=== PATIENT | female | born 1965 | race Caucasian/White ===

== ENCOUNTER 2019-09-26 01:55 | Observation (INO) | payer OTHER, MEDICAID, SELFPAY ==
[2019-09-26] VITALS (29 sets, daily range): BP systolic 97–143; BP diastolic 48–80; PULSE 66–98; RESP 11–20; TEMP 36.1–38.4; O2SAT 86–100; BMI 33.9
--- NOTE | 2019-09-26 02:00 | DI.RAD.S_ITS ---
PROCEDURE: XR ABDOMEN MIN 2V INDICATIONS: severe abdominal pain, decreased BM TECHNIQUE: 2 views of the abdomen were acquired. COMPARISON: None. FINDINGS: Surgical changes and devices: None. Bowel: No pneumoperitoneum. Multiple mildly dilated loops of small bowel noted. Scattered air-fluid levels are noted several which have differential height. Soft tissues: No masses; visualized solid organ contours appear normal in size. No suspicious abdominal calcifications. Bones: No suspicious bony abnormalities. IMPRESSION: Findings concerning for small-bowel obstruction. Dictated by: Nevin Ugalde MD, PhD on 09/26/2019 at 9:09 Approved by: Nevin Ugalde MD, PhD on 09/26/2019 at 9:09
--- NOTE | 2019-09-26 02:06 | ED.ABDPAIN ---
HPI - Abdominal Pain General Chief Complaint: Abdominal Pain Stated Complaint: poss SBO /constipation Time Seen by Provider: 09/26/19 01:55 Source: patient and EMS Mode of arrival: EMS Limitations: no limitations History of Present Illness HPI narrative: 54-year-old female nonsmoker with history of depression presents by air medical transport for evaluation of severe generalized abdominal pain, gradually worsening since Tuesday. She has had no bowel movements and limited passage of gas since then. She has had nausea but no vomiting. She has had low-grade fever in the absence of runny nose, sore throat or cough. She denies dysuria, frequency or urgency. She was given fentanyl 50 micro g by on scene paramedics as well as some Zofran. She denies any history of the same. Her pain is significantly worse with any motion and improves with rest. MD complaint: abdominal pain Onset (ago): day(s) Pain Consistency: constant Location: diffuse Severity: severe Quality: cramping and aching Radiation: none Relieving factors: rest Exacerbating factors: movement Associated symptoms: nausea and fever Related Data Home Medications Medication Instructions Recorded Confirmed lisinopril 30 mg PO QDAY #0 12/25/15 ibuprofen 800 mg PO QDAY #0 01/29/16 Previous Rx's Medication Instructions Recorded clonidine HCl 0.1 mg PO HS #30 tab 04/05/16 naltrexone 50 mg PO QDAY #30 tab 04/05/16 bupropion HCl [Wellbutrin XL] 150 mg PO QDAY #30 tab 01/05/17 bupropion HCl [Wellbutrin XL] 300 mg PO QDAY #30 tab 01/05/17 Allergies Allergy/AdvReac Type Severity Reaction Status Date / Time No Known Drug Allergies Allergy Verified 09/26/19 02:48 Review of Systems Constitutional Constitutional: Reports body ache(s), Reports chills, Denies fatigue, Reports fever(s), Denies frequent falls, Denies lethargy and Denies weakness Eyes Eyes: Denies change in vision, Denies eye discharge, Denies irritation and Denies loss of vision ENT Ears, Nose, Mouth, and Throat: Denies change in voice, Denies dizziness, Denies neck pain, Denies sore throat and Denies throat swelling Cardiovascular Cardiovascular: Denies chest pain, Denies irregular heart rhythm, Denies lightheadedness, Denies palpitations, Denies dyspnea, Denies dyspnea on exertion and Denies orthopnea Respiratory Respiratory: Denies cough, Denies dyspnea, Denies dyspnea on exertion and Denies wheezing Gastrointestinal Gastrointestinal: Reports abdominal pain, Denies change in bowel habits, Denies diarrhea, Reports nausea and Denies vomiting Musculoskeletal Musculoskeletal: Denies neck pain and Denies numbness Integumentary/Breasts Skin/Breast: Denies pruritus, Denies erythema, Denies rash and Denies wounds Neurologic Neurologic: Denies behavioral changes, Denies confusion, Denies dizziness, Denies frequent falls, Denies loss of vision, Denies numbness and Denies weakness Psychiatric Psychiatric: Denies anxiety, Denies behavioral changes, Denies confusion, Denies depression, Denies homicidal ideation and Denies suicidal ideation Endocrine Endocrine: Denies fatigue, Denies flushing and Denies palpitations Hematologic/Lymphatic Hematologic/Lymphatic: Denies easy bruising Allergic/Immunologic Allergic/Immunologic: Denies urticaria, Denies throat swelling and Denies wheezing Patient History Social History Smoking Status: Never smoker Smoking Status: Never smoker alcohol intake frequency: 0-2 drinks per day Substance Use Type: does not use Exam Narrative Exam Narrative: GENERAL: [54] year old patient appears stated age. Well-nourished, well-developed patient, in obvious distress, obvious pain HEAD: Atraumatic. Normocephalic. EYES: Pupils equal round and reactive. Extraocular motions intact. No scleral icterus. No injection or drainage. ENT: Nose without bleeding, purulent drainage. Throat without erythema, tonsillar hypertrophy or exudate. Airway patent. NECK: Trachea midline. Non tender CARDIOVASCULAR: Regular rate and rhythm without murmurs, gallops, or rubs. RESPIRATORY: Clear to auscultation. Breath sounds equal bilaterally. No wheezes, rales, or rhonchi. GASTROINTESTINAL: Abdomen soft, generalized tenderness, bowel sounds in all 4 quadrants nondistended. EXTREMITIES: No edema or joint tenderness. BACK: Nontender without deformity or crepitance. No flank tenderness. NEURO: AOx3. SKIN: No rash or erythema of visible areas Initial Vital Signs Initial Vital Signs: Vital Signs Temperature 101.1 F H 09/26/19 01:55 Pulse Rate 89 09/26/19 01:55 Respiratory Rate 16 09/26/19 01:55 Blood Pressure 120/60 09/26/19 01:55 Pulse Oximetry 100 09/26/19 01:55 Course Orders Ordered: ED Orders 09/26/19 02:00 XR abdomen min 2V Stat 09/26/19 02:15 Complete Blood Count AUTO DIFF Stat Comprehensive Metabolic Panel Stat Lactate (Lactic Acid) Stat Lipase Stat 09/26/19 02:25 Blood Culture Stat 09/26/19 02:38 Urine Culture Stat Urine Microscopic Stat 09/26/19 02:56 CT abdomen pelvis w con Stat Hydromorphone HCl (Dilaudid) 0.5 mg IV Q2H PRN PRN Reason: Pain, Severe (7-10) Sodium Chloride (Normal Saline 0.9%) 1,000 mls @ 125 mls/hr IV CONT WILFRID Lisinopril (Zestril) 30 mg PO QDAY WILFRID Discontinued Medications Sodium Chloride (Normal Saline 0.9%) 1,000 mls @ 1,000 mls/hr IV BOLUS ONE Stop: 09/26/19 02:58 Last Infusion: 09/26/19 03:50 Dose: 0 mls/hr Documented by: Admin: 09/26/19 02:48 Dose: 1,000 mls/hr Documented by: JENNIFER Ceftriaxone Sodium/Dextrose (Rocephin) 1 gm in 50 mls @ 100 mls/hr IV NOW ONE Stop: 09/26/19 03:39 Last Infusion: 09/26/19 04:06 Dose: 0 mls/hr Documented by: Admin: 09/26/19 03:24 Dose: 100 mls/hr Documented by: JENNIFER Ketorolac Tromethamine (Toradol) 15 mg IV NOW ONE Stop: 09/26/19 04:10 Last Admin: 09/26/19 04:13 Dose: 15 mg Documented by: MANFRED Ondansetron HCl (Zofran) 4 mg IV NOW ONE Stop: 09/26/19 04:10 Last Admin: 09/26/19 04:12 Dose: 4 mg Documented by: MANFRED Consultations Consultation #1: call to Dr. Rajan, he requests patient be admitted to the floor, kept NPO, pain control and will go to OR to get a stent later today Vital Signs Vital signs: Vital Signs - 8 hr 09/26/19 01:55 09/26/19 01:58 09/26/19 02:00 Temperature 101.1 F H Pulse Rate 89 90 87 Respiratory Rate 16 Blood Pressure 120/60 139/69 120/60 Pulse Oximetry 100 95 95 09/26/19 02:30 09/26/19 02:56 09/26/19 03:00 Temperature Pulse Rate 84 85 90 Respiratory Rate Blood Pressure 127/67 132/80 Pulse Oximetry 96 91 95 09/26/19 03:25 09/26/19 03:30 09/26/19 03:52 Temperature Pulse Rate 91 H 90 97 H Respiratory Rate Blood Pressure 140/73 143/69 H Pulse Oximetry 96 95 97 09/26/19 04:00 09/26/19 04:31 09/26/19 05:00 Temperature 99.8 F H Pulse Rate Respiratory Rate Blood Pressure 123/64 105/80 106/64 Pulse Oximetry 09/26/19 05:30 Temperature 98.7 F Pulse Rate 84 Respiratory Rate 18 Blood Pressure 101/57 L Pulse Oximetry 96 MDM - Abdominal Pain Lab Data Result diagrams: 09/26/19 02:15 09/26/19 02:15 Labs: Lab Results 09/26/19 09/26/19 09/26/19 Range/Units 02:15 02:15 02:15 WBC 14.0 H (4.5-11.0) X10^3/uL RBC 4.49 (4.0-5.2) X10^6/uL Hgb 12.7 (12.0-16.0) g/dL Hct 38.3 (36-46) % MCV 85.4 (80-100) fL MCH 28.4 (26-34) PG MCHC 33.2 (30-36) % RDW 13.4 (11.6-14.8) % Plt Count 131 L (150-400) X10^3/uL Neut % (Auto) 86.7 H (50-75) % Lymph % (Auto) 6.6 L (25-40) % [place] % (Auto) 6.5 (3-14) % Eos % (Auto) 0.0 L (2-4) % Baso % (Auto) 0.2 (0-2) % Neut # (Auto) 91272 H (1369-6293) /uL Lymph # (Auto) 900 L (8667-2701) /uL [place] # (Auto) 900 (0-900) /uL Eos # (Auto) 0 (0-450) /uL Baso # (Auto) 0 (0-100) /uL Sodium 133 L (137-145) mmol/L Potassium 3.8 (3.4-5.1) mmol/L Chloride 99 (98-107) mmol/L Carbon Dioxide 27 (22-32) mmol/L BUN 11 (7-17) mg/dL Creatinine 0.63 (0.52-1.04) mg/dL Estimated GFR > 60.0 (>60) mL/min BUN/Creatinine Ratio 17.5 (6-22) Glucose 143 H (70-100) mg/dL Lactate 0.8 (0.7-2.1) mmol/L Calcium 8.9 (8.4-10.2) mg/dL Total Bilirubin 0.5 (0.2-1.3) mg/dL AST 22 (14-36) IU/L ALT 23 (<35) IU/L Alkaline Phosphatase 46 (38-126) U/L Total Protein 6.8 (6.3-8.2) g/dL Albumin 4.0 (3.5-5.0) g/dL Globulin 2.8 (1.7-4.1) g/dL Albumin/Globulin Ratio 1.4 (1.0-2.8) Lipase 52 (23-300) U/L Urine RBC (0-5/HPF) Urine WBC (0-5/HPF) Ur Squamous Epith Cells (0-5/HPF) Urine Bacteria (None) Ur Culture Indicated? COVID-19 PCR (Negative) 09/26/19 09/26/19 Range/Units 02:38 04:36 WBC (4.5-11.0) X10^3/uL RBC (4.0-5.2) X10^6/uL Hgb (12.0-16.0) g/dL Hct (36-46) % MCV (80-100) fL MCH (26-34) PG MCHC (30-36) % RDW (11.6-14.8) % Plt Count (150-400) X10^3/uL Neut % (Auto) (50-75) % Lymph % (Auto) (25-40) % [place] % (Auto) (3-14) % Eos % (Auto) (2-4) % Baso % (Auto) (0-2) % Neut # (Auto) (9000-0885) /uL Lymph # (Auto) (1993-4175) /uL [place] # (Auto) (0-900) /uL Eos # (Auto) (0-450) /uL Baso # (Auto) (0-100) /uL Sodium (137-145) mmol/L Potassium (3.4-5.1) mmol/L Chloride (98-107) mmol/L Carbon Dioxide (22-32) mmol/L BUN (7-17) mg/dL Creatinine (0.52-1.04) mg/dL Estimated GFR (>60) mL/min BUN/Creatinine Ratio (6-22) Glucose (70-100) mg/dL Lactate (0.7-2.1) mmol/L Calcium (8.4-10.2) mg/dL Total Bilirubin (0.2-1.3) mg/dL AST (14-36) IU/L ALT (<35) IU/L Alkaline Phosphatase (38-126) U/L Total Protein (6.3-8.2) g/dL Albumin (3.5-5.0) g/dL Globulin (1.7-4.1) g/dL Albumin/Globulin Ratio (1.0-2.8) Lipase (23-300) U/L Urine RBC 10-30/hpf H (0-5/HPF) Urine WBC 10-30/hpf H (0-5/HPF) Ur Squamous Epith Cells 0-1 /hpf (0-5/HPF) Urine Bacteria Moderate (10-30) H (None) Ur Culture Indicated? Specimen cultured COVID-19 PCR Negative (Negative) Point of care testing: Urine Dip Bedside Urine Glucose Negative Bedside Urine Bilirubin - Negative Bedside Urine Ketone - Negative Urine Specific [place] 1.015 Bedside Urine Occult Blood ++ Bedside Urine pH 6.5 Bedside Urine Protein +/- 15 Bedside Urine Urobilinogen +/- 1mg Bedside Urine Nitrite - Negative Bedside Urine Leukocytes +++ [address] scan - abdomen/pelvis: Radiologist's Impression: Large left UVJ obstructing stone (11mm) Discharge Plan Departure Patient Disposition: Admitted as Observation Clinical Impression: Obstruction, uropathy, Acute UTI Admit Date/Time: 09/26/19 05:36 Admit Provider: Trev Rajan
[2019-09-26 02:22] LABS: Add Manual Diff / Slide Review NO; Basophils Absolute Auto 0 /uL (0-100); Basophils Percent Auto 0.2 % (0-2); Eosinophils Absolute Auto 0 /uL (0-450); Hematocrit 38.3 % (36-46); Hemoglobin 12.7 g/dL (12.0-16.0); Lymphocytes Absolute Auto 900 /uL (1100-4500); Lymphocytes Percent Auto 6.6 % (25-40); Mean Corpuscular HGB Conc 33.2 % (30-36); Mean Corpuscular Hemoglobin 28.4 PG (26-34); Mean Corpuscular Volume 85.4 fL (80-100); Monocytes Absolute Auto 900 /uL (0-900); Monocytes Percent Auto 6.5 % (3-14); Neutrophils Absolute Auto 12200 /uL (1500-7000); Neutrophils Percent Auto 86.7 % (50-75); Platelet Count 131 X10^3/uL (150-400); Red Blood Cell Count 4.49 X10^6/uL (4.0-5.2); Red Cell Distribution Width 13.4 % (11.6-14.8)
[2019-09-26 02:41] LABS: Lactate (Lactic Acid) 0.8 mmol/L (0.7-2.1)
[2019-09-26 02:42] LABS: Alanine Aminotransferase 23 IU/L (<35); Albumin Globulin Ratio 1.4 (1.0-2.8); Alkaline Phosphatase 46 U/L (38-126); Aspartate Aminotransferase 22 IU/L (14-36); BUN Creatinine Ratio 17.5 (6-22); Bilirubin Total 0.5 mg/dL (0.2-1.3); Blood Urea Nitrogen 11 mg/dL (7-17); Calcium 8.9 mg/dL (8.4-10.2); Carbon Dioxide 27 mmol/L (22-32); Chloride 99 mmol/L (98-107); Estimated Glomerular Filt Rate > 60.0 mL/min (>60); Globulin 2.8 g/dL (1.7-4.1); Glucose 143 mg/dL (70-100); HEMOLYSIS < 15 (0-50); Lipase 52 U/L (23-300); Potassium 3.8 mmol/L (3.4-5.1); Sodium 133 mmol/L (137-145); Total Protein 6.8 g/dL (6.3-8.2)
[2019-09-26] MEDS: SODIUM CHLORIDE 0.9% 1,000 ML 1000 ML IV (02:48)
--- NOTE | 2019-09-26 02:56 | DI.CT.S_ITS ---
PROCEDURE: CT ABDOMEN PELVIS W CON INDICATIONS: severe abdominal pain, fever TECHNIQUE: After the administration of intravenous contrast, 5 mm thick sections acquired from the diaphragm to the symphysis. 5 mm coronal and sagittal reformats were acquired. For radiation dose reduction, the following was used: automated exposure control, adjustment of mA and/or kV according to patient size. COMPARISON: None. FINDINGS: Image quality: Excellent. ABDOMEN: Lung bases: Lung bases are clear. Heart size is normal. Solid organs: Liver is normal in size and enhancement. Gallbladder negative . Biliary system is non dilated. Pancreas enhances normally. Spleen is normal in size and enhancement. No adrenal nodules. 2 mm right renal calculus . No definite left nephrolithiasis. There is severe left hydroureteronephrosis related to a large 11 x 7 x 6 mm calculus seen at the left ureteral vesical junction. There is left perinephric stranding. Peritoneum and bowel: Bowel loops demonstrate normal wall thickness and caliber. No free fluid or air. Colonic diverticulosis is seen without evidence of acute complication. Normal appendix. Nodes and vessels: No retroperitoneal or mesenteric adenopathy by size criteria. Aorta and inferior vena cava are normal in size. Miscellaneous: No ventral hernias. PELVIS: Circumferential bladder wall thickening raising the possibility of age-indeterminate cystitis. No bladder calculi seen. Miscellaneous: No inguinal hernias or adenopathy. Bones: No suspicious bony lesions. Probably chronic nondisplaced left rib fracture image 16/2. No vertebral body compression fractures. IMPRESSION: Severely obstructive large left ureteral calculus, at the ureterovesical junction. Additional 2 mm right nephrolithiasis. Circumferential mural thickening of the bladder raising possibility of cystitis. Please correlate clinically Findings concordant with the preliminary study interpretation provided at the time of the exam. Dictated by: Kenny Son M.D. on 09/26/2019 at 8:45 Approved by: Kenny Son M.D. on 09/26/2019 at 8:53
[2019-09-26 03:08] LABS: Bacteria Urine Moderate (10-30); RBC Urine 10-30/HPF (0-5/HPF); Squamous Epithelial Cell Urine 0-1 /HPF (0-5/HPF); WBC Urine 10-30/HPF (0-5/HPF)
[2019-09-26 03:09] LABS: Culture Indicated Urine Specimen Cultured
[2019-09-26] MEDS: CEFTRIAXONE 1 GM/50 ML FROZ.PIGGY IV (03:24)
[2019-09-26] MEDS: ONDANSETRON 4 MG/2 ML INJ IV ×2 (04:12→07:44)
[2019-09-26] MEDS: KETOROLAC 60 MG/2 ML VIAL 15 MG IV (04:13)
[2019-09-26 05:36] LABS: COVID19 -Nasal RAPID Negative (Negative)
[2019-09-26] MEDS: SODIUM CHLORIDE 0.9% 1,000 ML 125 ML IV (06:43)
[2019-09-26] MEDS: HYDROMORPHONE 0.5 MG INJ IV (07:44)
--- NOTE | 2019-09-26 08:04 | PM.HP.1 ---
History of Present Illness History of Present Illness Date Patient Seen: 09/26/19 Time Patient Seen: 08:05 Date of Onset of Symptoms: 09/22/19 Chief complaint: poss SBO /constipation Narrative: 54-year-old white female air lifted from [facility] overnight for evaluation and management of abdominal pain, nausea, and malaise. A presentation she had a fever of 101 and vitals were stable. WBC was elevated at [address] KUB identifies and 11+ mm calculus reportedly at the left UVJ. She denies history of UTI. She denies previous history of stone. She is generally healthy and status post ROBYN without oophorectomy. Patient History Family & Social History Social History: household members significant other Prior Living Arrangements House Safety & Behavioral: Feels Safe in Current Yes Environment Been Physically Hurt or No Threatened By a Person Suicidal Ideation Description None Tobacco & Substance use: Tobacco type cigarettes Smoking Status Current some day smoker alcohol intake frequency holiday/special occasion Substance Use Type does not use Meds Home Medications and Allergies Home Medications Medication Instructions Recorded Confirmed Type ibuprofen 800 mg PO QDAY #0 01/29/16 09/26/19 History bupropion HCl [Wellbutrin XL] 150 mg PO QDAY #30 tab 01/05/17 09/26/19 Rx bupropion HCl [Wellbutrin XL] 300 mg PO QDAY #30 tab 01/05/17 09/26/19 Rx Allergies Allergy/AdvReac Type Severity Reaction Status Date / Time No Known Drug Allergies Allergy Verified 09/26/19 02:48 Review of Systems Review of Systems ROS: Yes All systems reviewed with the patient and are negative except as otherwise documented Exam Vital Signs (past 8 hours): - 09/26/19 01:55 09/26/19 01:58 09/26/19 02:00 Temperature 101.1 F H Pulse Rate 89 90 87 Respiratory Rate 16 Blood Pressure 120/60 139/69 120/60 Pulse Oximetry 100 95 95 09/26/19 02:30 09/26/19 02:56 09/26/19 03:00 Temperature Pulse Rate 84 85 90 Respiratory Rate Blood Pressure 127/67 132/80 Pulse Oximetry 96 91 95 09/26/19 03:25 09/26/19 03:30 09/26/19 03:52 Temperature Pulse Rate 91 H 90 97 H Respiratory Rate Blood Pressure 140/73 143/69 H Pulse Oximetry 96 95 97 09/26/19 04:00 09/26/19 04:31 09/26/19 05:00 Temperature 99.8 F H Pulse Rate Respiratory Rate Blood Pressure 123/64 105/80 106/64 Pulse Oximetry 09/26/19 05:30 09/26/19 06:00 09/26/19 06:33 Temperature 98.7 F 98.5 F Pulse Rate 84 87 87 Respiratory Rate 18 16 Blood Pressure 101/57 L 119/77 119/77 Pulse Oximetry 96 95 Oxygen Delivery Method Room Air Oxygen Flow Rate 0 Narrative Exam Narrative: She is a pleasant, well-nourished white female lying comfortably in bed. Head/neck-atraumatic and normocephalic. Sclerae are clear and there is no JVD or adenopathy. Chest-equal unlabored and clear bilaterally. Heart-regular rate and rhythm. No clicks, rubs or murmurs heard. Abdomen-protuberant, soft, and normal bowel tones. She is tender without rebound in the left lower quadrant. Objective Labs Result Diagrams: 09/26/19 02:15 09/26/19 02:15 Labs: Laboratory Results - last 24 hr 09/26/19 09/26/19 09/26/19 02:15 02:15 02:15 WBC 14.0 H RBC 4.49 Hgb 12.7 Hct 38.3 MCV 85.4 MCH 28.4 MCHC 33.2 RDW 13.4 Plt Count 131 L Neut % (Auto) 86.7 H Lymph % (Auto) 6.6 L [place] % (Auto) 6.5 Eos % (Auto) 0.0 L Baso % (Auto) 0.2 Neut # (Auto) 26184 H Lymph # (Auto) 900 L [place] # (Auto) 900 Eos # (Auto) 0 Baso # (Auto) 0 Sodium 133 L Potassium 3.8 Chloride 99 Carbon Dioxide 27 BUN 11 Creatinine 0.63 Estimated GFR > 60.0 BUN/Creatinine Ratio 17.5 Glucose 143 H Lactate 0.8 Calcium 8.9 Total Bilirubin 0.5 AST 22 ALT 23 Alkaline Phosphatase 46 Total Protein 6.8 Albumin 4.0 Globulin 2.8 Albumin/Globulin Ratio 1.4 Lipase 52 Urine RBC Urine WBC Ur Squamous Epith Cells Urine Bacteria Ur Culture Indicated? COVID-19 PCR 09/26/19 09/26/19 02:38 04:36 WBC RBC Hgb Hct MCV MCH MCHC RDW Plt Count Neut % (Auto) Lymph % (Auto) [place] % (Auto) Eos % (Auto) Baso % (Auto) Neut # (Auto) Lymph # (Auto) [place] # (Auto) Eos # (Auto) Baso # (Auto) Sodium Potassium Chloride Carbon Dioxide BUN Creatinine Estimated GFR BUN/Creatinine Ratio Glucose Lactate Calcium Total Bilirubin AST ALT Alkaline Phosphatase Total Protein Albumin Globulin Albumin/Globulin Ratio Lipase Urine RBC 10-30/hpf H Urine WBC 10-30/hpf H Ur Squamous Epith Cells 0-1 /hpf Urine Bacteria Moderate (10-30) H Ur Culture Indicated? Specimen cultured COVID-19 PCR Negative Assessment & Plan Assessment & Plan narrative: Assessment: 1. Obstructing 11 mm + left distal ureteral calculus. Upon my review of the images my impression is that the calculus is is within the intramural ureter very near or at the orifice. 2. UTI. Plan: 1. Discussion and informed consent obtained for CYSTOSCOPY/POSSIBLE LEFT STENT PLACEMENT/POSSIBLE STONE EXTRACTION. Explained findings and discussed impression and recommended plan. Utilized line diagrams to facilitate informed consent. Explain the common side effects, possible complications, perioperative limitations/restrictions, and reasonable expectations of outcomes and recovery following the above interventions. 2. Cultures pending. Will continue broad-spectrum coverage for now. Quality VTE Deep Vein Thrombosis/Pulmonary Embolism Present on Admission: No
--- NOTE | 2019-09-26 14:02 | CM.DANOTE ---
Patient is a 54 year old female who was admitted on 09/26/19 for Possible SBO. Pt has REG PPO and [employer] for insurance and her PCP is Dr. Bora Segovia. EMR was reviewed. Per MD, pt with possible need for stent placement and stone extraction and scheduled for cystoscopy at 1500 today. SW met bedside with pt, who was sleeping soundly after being very uncomfortable most of the night, and Sig Other Sada and explained role and Sada confirmed that they live on [facility] and pt is independent with ADL's at baseline and drives and does not use DME for ambulation. No hx of HH or SNF and no formal DPOA pwk completed. Pt is active and healthy at baseline. Preference is home when medically stable and no anticipated needs but surgery still pending. Plan: SW to follow after cystoscopy this afternoon towards determining if pt safe for d/c home with sig other when stable and any further identified discharge planning needs. MICHELL Joya Discharge Planning/Care Management CM Discharge Assessment Start: 09/26/19 14:01 Freq: Status: Active Protocol: Document 09/26/19 14:01 (Rec: 09/26/19 14:02 [id number]) Discharge Planning Assessment Assigned Powered Bridge Specialist ROX [place] Advance Directives? No Advance Directives on File No History Provided By Patient,Significant Other, Medical Record Has Patient been admitted in last 30 No days? Prior Living Arrangements House Household Members significant other Type of transporation used prior to Drives own vehicle admit Independent with ADL's Yes Is patient alert and oriented? Yes Caregiver for Another No Barriers to Discharge No Discharge Plan Home Transportation Arrangement Sig Other bedside and can provide transport home at d/c Referrals Initiated None needed Whiteboard Updated in Patient Room with Yes name and ext. # of Powered Bridge Specialist Review Status In Process Please Provide Date Initial DC 09/26/19 Assessment Was Performed Next Review Type Continued Stay Review
[2019-09-26] MEDS: LACTATED RINGERS 1,000 ML 42 ML IV (16:46)
[2019-09-26] MEDS: CIPROFLOXACIN 400 MG/200 ML PIGGYBACK 200 MG IV (17:12)
--- NOTE | 2019-09-26 17:56 | SUR.OPER ---
Lithotomy on padded OR bed, head on pillow, arms secured on padded arm boards at <90 degrees abduction. Legs secured in padded yellow fins stirrups.
--- NOTE | 2019-09-26 18:12 | P.OP_ITS ---
Operative Date/Time/Diagnoses Date of procedure: 09/26/19 Time of procedure: 18:12 Pre-op diagnosis: Obstructing 8 x 11 mm left distal ureteral calculus Urinary tract infection Post-op diagnosis: same Procedure & Clinicians Procedure: 1. Cystoscopy and transurethral left ureteral meatotomy. 2. Cystoscopy and left ureteral stone extraction. Same procedure as scheduled: Yes Indications: Obstructing 8 x 11 mm left distal ureteral calculus. Urinary tract infection Click Yes if Unassisted: Yes Anesthesia Type: General Operative Notes Findings: Urethra normal. Bladder urothelium normal throughout with the exception of the regional surrounding the left distal intramural ureter and left it ureteral orifice. A small portion of the calculus could be visualized within the os of the left ureteral orifice. Closure Type: not applicable Specimen(s): other (Stone from left distal ureter) Estimated Blood Loss (mL): 1 Blood products transfused: none Tourniquet time (min): 0 Procedure in detail: The patient was positioned supine and was administered gene ral anesthesia. She was then repositioned semi lithotomy the lower abdomen genitalia and groin were prepped and draped in sterile fashion. The 22 [place] panendoscope was then passed in the lower urinary tract with findings as described above. The resectoscope was then prepared and fitted with a Quevedo hot knife. The tip of the device was then insinuated into the left ureteral orifice and a vertical incision was carried out more proximally. Once the stone was more visualized the tip of the Quevedo knife was used to help manipulate it from its impacted site. Indeed, it was extracted from its impacted location, gathered at the tip of the resectoscope with the Quevedo knife and removed. The stone was then sent to laboratory for crystallographic analysis. Hemostasis was attained with the cautery mode using the Quevedo knife. The bladder was then drained completely and all instrumentation was removed. The patient was then repositioned supine, awakened, and transferred to recovery room. Complications: none Post-operative Condition: stable Disposition: PACU Plan for aftercare: Acute Care
[2019-09-26] MEDS: BELLADONNA/OPIUM SUPPOSITORIES 1 EACH PR (18:42)
--- NOTE | 2019-09-26 18:42 | SUR.PHASEI ---
Pt arrived to PACU with oral airway, room air sats 86%, 02 nasal cannula placed at 4/l, sats up to normal limits. Oral air way out and pt breathing normally. Dr. Rajan spoke with pt at bedside, taking ice chips, no nausea. Pt remains sleepy easily aroused.
--- NOTE | 2019-09-26 18:48 | SUR.PHASEI ---
Dr. Franco checked on pt, pt w/o complaints. Report called to Ron and pt brought back to room on room air via bed.
--- NOTE | 2019-09-26 19:12 | SUR.PHASEI ---
Pt left with Carolyne in stable condition, bed low, locked and call robertson in hand.
[2019-09-26] MEDS: DEXTROSE 5%-0.45% NS 1,000 ML 125 ML IV (19:36)
[2019-09-26] MEDS: CIPROFLOXACIN 500 MG TABLET PO (22:14)
[2019-09-27] MEDS: DEXTROSE 5%-0.45% NS 1,000 ML 125 ML IV (03:35)
[2019-09-27 04:09] VITALS: BP 114/68; PULSE 66; RESP 16; TEMP 36.1; O2SAT 96
[2019-09-27 08:00] VITALS: BP 142/71; PULSE 60; RESP 16; TEMP 36.2; O2SAT 96
--- NOTE | 2019-09-27 08:03 | PM.DS.1 ---
History of Present Illness History of Present Illness Date Patient Seen: 09/27/19 Time Patient Seen: 08:03 Chief complaint: poss SBO /constipation Narrative: 54-year-old white female air lifted from [facility] overnight for evaluation and management of abdominal pain, nausea, and malaise. A presentation she had a fever of 101 and vitals were stable. WBC was elevated at [address] KUB identifies and 11+ mm calculus reportedly at the left UVJ. She denies history of UTI. She denies previous history of stone. She is generally healthy and status post ROBYN without oophorectomy. Discharge Providers Provider Date of admission: 09/26/19 05:36 Discharge Date: 09/27/19 Primary care physician: Bora Segovia MD Discharge provider: Trev Rajan MD Summary Hospital Course Discharge Diagnosis: 1. obstructing 11 mm left distal ureteral calculus. 2. 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 Evaluation including CT KUB reveals an obstructing 11+ mm left distal ureteral calculus. Urinalysis was indicative of UTI. She was taken the operating room on the evening of 09/26/2019 and underwent uncomplicated extraction of the left ureteral stone under general anesthesia. Her postop recovery is been entirely unremarkable and on the morning of 09/27/2019 she is stable for discharge. Final urine culture is still pending. Follow-up visit will be arranged in 2-3 months for metabolic stone risk evaluation. She will be provided a prescription for ciprofloxacin at discharge. Status at Discharge Cognitive/behavioral status at discharge: oriented Functional status at discharge: independent ambulation Overall status at discharge: patient is back to baseline Exam Vital Signs (past 8 hours): - 09/27/19 04:09 Temperature 96.9 F L Pulse Rate 66 Respiratory Rate 16 Blood Pressure 114/68 Pulse Oximetry 96 Oxygen Delivery Method Room Air Oxygen Flow Rate 0 Objective Labs Result Diagrams: 09/26/19 02:15 09/26/19 02:15 Discharge Plan Discharge Plan Discharge Problem: Obstruction, uropathy, Acute UTI Patient Disposition: Home Discharge orders & Medications Prescriptions: New ciprofloxacin HCl 250 mg tablet 250 mg PO Q12H Qty: 10 RF: 0 Continued ibuprofen 800 MG tablet 800 mg PO QDAY Qty: 0 RF: 0 bupropion HCl [Wellbutrin XL] 300 MG tablet extended release 24 hr 300 mg PO QDAY Qty: 30 RF: 1 bupropion HCl [Wellbutrin XL] 150 MG tablet extended release 24 hr 150 mg PO QDAY Qty: 30 RF: 1 Follow up/Referrals: Bora Segovia MD [Primary Care Provider] - Discharge Health Status Multidrug resistant organism: No MDRO Diet/Activity/Treatments Diet: Diet as Tolerated Activity: ad mateo Skin/Wound/Dressing Care Report to your healthcare provider any signs of infection, such as:: chills, fever and increased pain Visit Report/Discharge Packet Instructions: DI for Cystoscopy, DI for Prescription Opioid Use Stand Alone Forms: Surgery Discharge Discharge Data Primary Care Provider: Bora Segovia Attending Provider: Trev Rajan Admit Date/Time: 09/26/19 05:36 Quality VTE Deep Vein Thrombosis/Pulmonary Embolism Present on Admission: No
[2019-09-27] MEDS: buPROPion XL 150 MG TAB 450 MG PO (09:36)
[2019-09-27] MEDS: IBUPROFEN 400 MG TABLET 800 MG PO (09:36)
[2019-09-27] MEDS: CIPROFLOXACIN 500 MG TABLET PO (09:36)
--- NOTE | 2019-09-27 10:45 | PC.NURSE ---
Day shift: Pt left unit at approx 1055 to a taxi in . [place] [facility] [place] [address] Paperwork is signed and all questions answered. Pt has all persoanl belongings and MD script. Pt also has her meds that were down in pharmacy. Happy to be going home today.
[2019-10-16 08:45] LABS: Size 11x7 mm; Stone Analysis Source Left Ureter
[2019-10-16 08:46] LABS: Ca oxalate dihydrate 40%; Ca oxalate monohydr 30%; Hydroxyapatite 30%; Photo SEE EMR
== END 2019-09-27 11:06 | disposition home or self-care (01) ==
LOC: ED 04:51 → AC 05:37
PROVIDERS: Admitting Provider Specialist; Emergency Provider Emergency Medicine; Family Provider Family Medicine; PCP Family Medicine; Referring Provider Emergency Medicine; Visit Provider Specialist
PROC: (CPT 52290; principal; 2019-09-26 17:15)
DX: N20.1 Calculus of ureter (principal); R10.9 Unspecified abdominal pain; F17.210 Nicotine dependence, cigarettes, uncomplicated; Z11.59 Encounter for screening for other viral diseases; N39.0 Urinary tract infection, site not specified
CPT/HCPCS: 52290; 52320; 36415; 36592; 74019; 74177; 80053; 81003; 81015; 82365; 82962; 83605; 83690; 85025; 87040; 87086; 87635; 96361; 96365; 96375; 96376; 99284; G0378; J0744; J1100; J1170; J1885; J2250; J2405; J2704; J2765; J3010; Q9967

== ENCOUNTER → 2019-12-12 09:58 | Outpatient (CLI) | payer OTHER, SELFPAY ==
[2019-09-26 05:43] VITALS: BMI 33.9
--- NOTE | 2019-12-12 09:59 | DI.RAD.S_ITS ---
PROCEDURE: XR KNEE RT 3V INDICATIONS: right knee pain TECHNIQUE: 3 views of the knee were acquired. COMPARISON: None. FINDINGS: Bones: No fractures or dislocations. No suspicious bony lesions. Mild degenerative change. Soft tissues: No joint effusion. No suspicious soft tissue calcifications. IMPRESSION: Mild degenerative change. No evidence acute bony abnormality of the right knee. If clinical suspicion and/or symptoms persist, further assessment with repeat plain films, or advanced imaging (e.g., CT, MRI, or bone scan) may be helpful for further assessment. Dictated by: Darius Hawley M.D. on 12/12/2019 at 10:16 Approved by: Darius Hawley M.D. on 12/12/2019 at 10:18
== END ==
PROVIDERS: Family Provider Family Medicine; PCP Family Medicine; Referring Provider Physician Assistant; Visit Provider Physician Assistant
DX: M25.561 Pain in right knee (principal)
CPT/HCPCS: 73562

== ENCOUNTER → 2020-01-12 10:20 | Outpatient (CLI) | payer OTHER, SELFPAY ==
[2019-09-26 05:43] VITALS: BMI 33.9
--- NOTE | 2020-01-12 | DI.MRI.S_ITS ---
PROCEDURE: MR KNEE RT WO CON INDICATIONS: Other tear of medial meniscus-Right knee TECHNIQUE: Noncontrast sagittal PD fast spin echo and T2 fast spin echo with fat saturation, sagittal 3-D FLASH with fat saturation; coronal T1 spin echo and PD fast spin echo with fat saturation, and axial PD fast spin echo with fat saturation through the knee. COMPARISON: [facility], CR, XR KNEE RT 3V, 12/12/2019, 9:48. FINDINGS: Image quality: Excellent. Menisci: The lateral meniscus is intact. There is tearing of the medial posterior horn/root . Additional high signal is noted within the body and posterior horn of the medial meniscus without definite contact of articular surface. Cruciate ligaments: The anterior and posterior cruciate ligaments appear intact. Medial structures: The medial collateral ligament appears intact. The posterior oblique ligament, semimembranosus tendon insertions, oblique popliteal ligament, and meniscocapsular junction appear intact. Visualized portions of the pes anserinus tendons are intact. No abnormal bursal fluid. Lateral structures: The lateral collateral ligament, long and short heads of the biceps femoris tendon appear intact. The popliteus tendon appears normal; the popliteofibular ligament appears intact. The posterosuperior and anteroinferior popliteomeniscal fascicles appear intact. The arcuate and fabellofibular ligaments appear intact, on either side of the lateral inferior geniculate artery. Iliotibial band appears normal. Anterior structures: The quadriceps and patellar tendons appear intact. Patellar alignment is normal. No femoral trochlear dysplasia or ventral trochlear prominence. No edema in the infrapatellar fat pad. Bones and cartilage: There is bone marrow edema within the posterior aspect of the medial femoral condyle. There is subtle cortical indentation. There are small cysts noted at the PCL insertion of the tibia intact. There is partial-thickness cartilage loss of the medial compartment. No full thickness cartilage defect. The cartilage within the patellofemoral and lateral compartments remains intact. Joint space: There is a moderate-sized joint effusion. There is a large multiloculated Kaba's cyst. This is mildly complex with internal debris. Normal appearing synovial plicae are incidentally noted. IMPRESSION: Complex tearing of the posterior horn/root of the medial meniscus. Additional high signal within the posterior horn and body of the medial meniscus likely represents contusion. Bone marrow edema with likely small impaction fracture of the posterior medial femoral condyle. Large complex Kaba's cyst. Dictated by: David Cobos D.O. on 01/12/2020 at 10:55 Approved by: David Cobos D.O. on 01/12/2020 at 11:07
== END ==
PROVIDERS: Family Provider Family Medicine; PCP Family Medicine; Referring Provider Family Medicine; Visit Provider Family Medicine
DX: S83.241A Other tear of medial meniscus, current injury, right knee, initial encounter (principal); M71.21 Synovial cyst of popliteal space [Baker], right knee
CPT/HCPCS: 73721

== ENCOUNTER 2020-01-12 11:12 | Emergency (ER) | payer OTHER, SELFPAY ==
[2019-09-26 05:43] VITALS: BMI 33.9
[2020-01-12 11:15] VITALS: BP 163/98; PULSE 77; RESP 14; TEMP 36.6; O2SAT 97; BMI 32.3
--- NOTE | 2020-01-12 12:30 | ED_ITS ---
HPI - Extremity Problem <DEB Lopez - Last Filed: 01/12/20 13:25> General Chief complaint: Extremity Problem,Nontraumatic Stated complaint: needs right knee looked at/just had MRI done Time Seen by Provider: 01/12/20 12:06 Source: patient Mode of arrival: Ambulatory Limitations: no limitations History of Present Illness HPI Narrative: The patient is a 54-year-old female current some day smoker with history of right knee pain who presents with a chief complaint of continued right knee pain. She states she was seen at the walk-in clinic at this facility in late November, had an x-ray. Subsequently she has seen her primary care provider who ordered an MRI. This MRI was done today at this hospital. She states that she came to the emergency department because she would like an orthopedist to look at her MRI today, and she is frustrated by how long it is taken to get the MRI done. She denies taking anything for pain then upon increase states that she takes ibuprofen once a day every day. She took it at 5:00 a.m. this morning. She states. Thatice is the only thing that helps she denies any further trauma or falls. She states that she thinks she is having muscle spasms. Related Data Home Medications Medication Instructions Recorded Confirmed ibuprofen 800 mg PO QDAY #0 01/29/16 12/12/19 ciprofloxacin HCl 250 mg tablet 250 mg PO Q12H tab 12/12/19 estradiol 0.5 mg tablet 0.5 mg PO DAILY 12/12/19 12/12/19 Previous Rx's Medication Instructions Recorded bupropion HCl [Wellbutrin XL] 150 mg PO QDAY #30 tab 01/05/17 bupropion HCl [Wellbutrin XL] 300 mg PO QDAY #30 tab 01/05/17 ketorolac 10 mg PO TID PRN #14 tab 01/12/20 lidocaine 1 patch TOPICAL DAILY PRN #15 ea 01/12/20 Allergies Allergy/AdvReac Type Severity Reaction Status Date / Time No Known Drug Allergies Allergy Verified 01/12/20 11:20 Review of Systems <DEB Lopez - Last Filed: 01/12/20 13:25> Review of Systems Narrative: GENERAL: Denies chills, fatigue, malaise, fever, sweats. HEENT: Denies sinus pain, ear pain, sore throat, difficulty swallowing, dizziness. RESPIRATORY: Denies dyspnea, cough, wheezing, hemoptysis, sputum. CARDIOVASCULAR: Denies chest pain, palpitations, orthopnea, edema, GASTROINTESTINAL: Denies nausea, vomiting, abdominal pain, diarrhea, constipation, melena. : Denies dysuria, frequency, incontinence, hematuria, urinary retention. MUSCULOSKELETAL: See HPI SKIN: Denies rash, skin lesions, or other NEUROLOGIC: Denies weakness, headache, numbness, change in speech, confusion, seizures, incoordination. PSYCHIATRIC: No concerning psychosocial issues. 12 point review of systems is negative except for those stated above Patient History <DEB Lopez - Last Filed: 01/12/20 13:25> Social History household members: significant other Smoking Status: Current some day smoker Smoking Status: Current some day smoker alcohol intake frequency: holidays/special occasions only Substance Use Type: does not use Exam <DEB Lopez - Last Filed: 01/12/20 13:25> Narrative Exam Narrative: GENERAL: This is a well-nourished, well-developed patient, in no acute distress HEAD: Atraumatic. Normocephalic. No temporal or scalp tenderness. EYES: Pupils equal round and reactive. Extraocular motions intact. No scleral icterus. No injection or drainage. ENT: Nose without bleeding, purulent drainage or septal hematoma. Wearing a mask. Airway patent. CARDIOVASCULAR: Regular rate and rhythm RESPIRATORY: No cough. No increased respiratory effort. No accessory muscle use. Speaking full sentences. EXTREMITIES: Diffuse pain to palpation noted right knee. Able to fully flex and extend. Able to lift leg off of stretcher. Positive pedal pulses. No overlying erythema, ecchymosis noted diffusely around knee. Negative varus, negative valgus, negative anterior posterior drawer. Pain on Julieta's. BACK: Nontender without deformity or crepitance. No flank tenderness. NEURO: AOx3. SKIN: See extremity exam Initial Vital Signs Initial Vital Signs: Vital Signs Temperature 97.9 F 01/12/20 11:15 Pulse Rate 77 01/12/20 11:15 Respiratory Rate 14 01/12/20 11:15 Blood Pressure 163/98 H 01/12/20 11:15 Pulse Oximetry 97 01/12/20 11:15 <Deandra Moura DO - Last Filed: 01/13/20 07:37> Initial Vital Signs Initial Vital Signs: Vital Signs Temperature 97.9 F 01/12/20 11:15 Pulse Rate 77 01/12/20 11:15 Respiratory Rate 14 01/12/20 11:15 Blood Pressure 163/98 H 01/12/20 11:15 Pulse Oximetry 97 01/12/20 11:15 Scores <DEB Lopez - Last Filed: 01/12/20 13:25> GCS Rigo coma scale eye opening: Spontaneous Cody coma scale verbal response: Orientated Cody coma scale motor response: Obey commands Rigo coma scale total score: 15 Course <DEB Lopez - Last Filed: 01/12/20 13:25> Orders Ordered: Discontinued Medications Acetaminophen (Acetaminophen 325 Mg Tablet) 975 mg PO NOW ONE Stop: 01/12/20 12:31 Last Admin: 01/12/20 12:36 Dose: 975 mg Documented by: BRIEN Ketorolac Tromethamine (Ketorolac 60 Mg/2 Ml Vial) 30 mg IM NOW ONE Stop: 01/12/20 12:31 Last Admin: 01/12/20 12:36 Dose: 30 mg Documented by: BRIEN Lidocaine (Lidocaine Patch 1 Each Adh..Patch) 1 each TOP NOW ONE Stop: 01/12/20 12:31 Last Admin: 01/12/20 12:36 Dose: 1 each Documented by: BRIEN Vital Signs Vital signs: Vital Signs - 8 hr 01/12/20 11:15 01/12/20 12:59 Temperature 97.9 F Pulse Rate 77 88 Respiratory Rate 14 18 Blood Pressure 163/98 H 161/97 H Pulse Oximetry 97 97 <Deandra Moura DO - Last Filed: 01/13/20 07:37> Orders Ordered: Discontinued Medications Acetaminophen (Acetaminophen 325 Mg Tablet) 975 mg PO NOW ONE Stop: 01/12/20 12:31 Last Admin: 01/12/20 12:36 Dose: 975 mg Documented by: BRIEN Ketorolac Tromethamine (Ketorolac 60 Mg/2 Ml Vial) 30 mg IM NOW ONE Stop: 01/12/20 12:31 Last Admin: 01/12/20 12:36 Dose: 30 mg Documented by: BRIEN Lidocaine (Lidocaine Patch 1 Each Adh..Patch) 1 each TOP NOW ONE Stop: 01/12/20 12:31 Last Admin: 01/12/20 12:36 Dose: 1 each Documented by: BRIEN Vital Signs Vital signs: Vital Signs - 8 hr 01/12/20 11:15 01/12/20 12:59 Temperature 97.9 F Pulse Rate 77 88 Respiratory Rate 14 18 Blood Pressure 163/98 H 161/97 H Pulse Oximetry 97 97 MDM - Extremity (Nontraumatic) <MARK Lopez-BC - Last Filed: 01/12/20 13:25> MDM Narrative Medical decision making narrative: The patient is a 54-year-old female who presents with a chief complaint of continued right knee pain. She has had an x- ray, had an MRI this morning which is not resulted yet. She presents because her pain is not improved and she would like an orthopedist to look at her MRI today. I discussed that we need to wait for the MRI to result, that her primary care provider is taking good stops as she has already had the required imaging. I agreed to try acetaminophen, lidocaine patch and Toradol in place of ibuprofen. Encouraged her to follow up with primary care provider in the next few days. She does not want any stronger medications. Patient has been neurovascularly intact throughout her stay in the ER. She feels much improved after the above-stated therapies. Patient has no questions or concerns upon discharge and states understanding return precautions as well as follow-up care. <Deandra Moura DO - Last Filed: 01/13/20 07:37> Imaging Data MR Knee: Radiologist's Impression: PROCEDURE: MR KNEE RT WO CON INDICATIONS: Other tear of medial meniscus-Right knee TECHNIQUE: Noncontrast sagittal PD fast spin echo and T2 fast spin echo with fat saturation, sagittal 3-D FLASH with fat saturation; coronal T1 spin echo and PD fast spin echo with fat saturation, and axial PD fast spin echo with fat saturation through the knee. COMPARISON: [facility], CR, XR KNEE RT 3V, 12/12/2019, 9:48. FINDINGS: Image quality: Excellent. Menisci: The lateral meniscus is intact. There is tearing of the medial posterior horn/root . Additional high signal is noted within the body and posterior horn of the medial meniscus without definite contact of articular surface. Cruciate ligaments: The anterior and posterior cruciate ligaments appear intact. Medial structures: The medial collateral ligament appears intact. The posterior oblique ligament, semimembranosus tendon insertions, oblique popliteal ligament, and meniscocapsular junction appear intact. Visualized portions of the pes anserinus tendons are intact. No abnormal bursal fluid. Lateral structures: The lateral collateral ligament, long and short heads of the biceps femoris tendon appear intact. The popliteus tendon appears normal; the popliteofibular ligament appears intact. The posterosuperior and anteroinferior popliteomeniscal fascicles appear intact. The arcuate and fabellofibular ligaments appear intact, on either side of the lateral inferior geniculate artery. Iliotibial band appears normal. Anterior structures: The quadriceps and patellar tendons appear intact. Patellar alignment is normal. No femoral trochlear dysplasia or ventral trochlear prominence. No edema in the infrapatellar fat pad. Bones and cartilage: There is bone marrow edema within the posterior aspect of the medial femoral condyle. There is subtle cortical indentation. There are small cysts noted at the PCL insertion of the tibia intact. There is partial-thickness cartilage loss of the medial compartment. No full thickness cartilage defect. The cartilage within the patellofemoral and lateral compartments remains intact. Joint space: There is a moderate-sized joint effusion. There is a large multiloculated Kaba's cyst. This is mildly complex with internal debris. Normal appearing synovial plicae are incidentally noted. IMPRESSION: Complex tearing of the posterior horn/root of the medial meniscus. Additional high signal within the posterior horn and body of the medial meniscus likely represents contusion. Bone marrow edema with likely small impaction fracture of the posterior medial femoral condyle. Large complex Kaba's cyst. Dictated by: David Cobos D.O. on 01/12/2020 at 10:55 Discharge Plan Departure Patient Disposition: Home Clinical Impression: Knee joint pain Qualifiers: Laterality: right Qualified Code(s): M25.561 - Pain in right knee Instructions: How To Perform RICE (Rest, Ice, Compress, Elevate), How to Apply an Leandro Wrap, DI for Knee Pain Activity Restrictions/Additional Instructions: Thank you for trusting us with your care today. As discussed, please follow-up with primary care provider regarding your MRI results of your knee. In the meantime please use rest ice compression elevation. I sent 2 prescriptions to [facility]. I have given you a prescription of ketorolac or Toradol. This is an NSAID. Do not combine it with other NSAIDs such as Aleve or ibuprofen. I suggest taking it with some food, as it can irritate your stomach. I have also given you a prescription of lidocaine patches. Do not use heat over the lidocaine patch. It can stay on for 12 hours and then has to come off for 12 hours. I also suggest using [id number] acetaminophen as needed and able Prescriptions: New lidocaine 5 % adhesive patch,medicated 1 patch topical DAILY PRN (Reason: pain) Qty: 15 RF: 0 ketorolac 10 mg tablet 10 mg PO TID PRN (Reason: pain) Qty: 14 RF: 0 No Action ciprofloxacin HCl 250 mg tablet 250 mg PO Q12H RF: 0 estradiol 0.5 mg tablet 0.5 mg PO DAILY RF: 0 ibuprofen 800 MG tablet 800 mg PO QDAY Qty: 0 RF: 0 bupropion HCl [Wellbutrin XL] 300 MG tablet extended release 24 hr 300 mg PO QDAY Qty: 30 RF: 1 bupropion HCl [Wellbutrin XL] 150 MG tablet extended release 24 hr 150 mg PO QDAY Qty: 30 RF: 1 Referrals: Bora Segovia MD [Primary Care Provider] - <Deandra Moura DO - Last Filed: 01/13/20 07:37> [facility] Att[facility]: I was immediately available in the department for consultation. Documentation has been reviewed. I agree with assessment and plan.
[2020-01-12] MEDS: LIDOCAINE PATCH 1 EACH ADH..PATCH TOP (12:36)
[2020-01-12] MEDS: KETOROLAC 60 MG/2 ML VIAL 30 MG IM (12:36)
[2020-01-12] MEDS: ACETAMINOPHEN 325 MG TABLET 975 MG PO (12:36)
[2020-01-12 12:59] VITALS: BP 161/97; PULSE 88; RESP 18; O2SAT 97
== END 2020-01-12 13:02 | disposition home or self-care (01) ==
PROVIDERS: Emergency Provider Nurse Practitioner Family; Family Provider Family Medicine; PCP Family Medicine
DX: M25.561 Pain in right knee (principal); S83.241A Other tear of medial meniscus, current injury, right knee, initial encounter; M71.21 Synovial cyst of popliteal space [Baker], right knee
CPT/HCPCS: 73721; 96372; 99281; 99283; J1885

== ENCOUNTER → 2020-02-28 11:42 | Outpatient (CLI) | payer OTHER, MEDICAID, SELFPAY ==
[2019-09-26 05:43] VITALS: BMI 33.9
--- NOTE | 2020-02-28 11:44 | DI.RAD.S_ITS ---
PROCEDURE: XR THORACIC SPINE 3V INDICATIONS: back pain TECHNIQUE: 3 views of the thoracic spine were acquired. COMPARISON: None. FINDINGS: Bones: No fractures or dislocations. Mild rightward scoliosis of thoracolumbar spine centered at T12-L1 level is seen. Mild degenerative endplate changes are noted in mid to lower thoracic spine. No suspicious bony lesions. 12 pairs of ribs are noted, and appear intact where visualized. Soft tissues: No paravertebral stripe thickening. IMPRESSION: Mild scoliosis as above. No acute compression fracture or spondylolisthesis. Mild degenerative disc disease in mid to lower thoracic spine. Dictated by: Jabari Martinez M.D. on 02/28/2020 at 12:16 Approved by: Jabari Martinez M.D. on 02/28/2020 at 12:17
== END ==
PROVIDERS: Family Provider Family Medicine; PCP Family Medicine; Referring Provider Physician Assistant; Visit Provider Physician Assistant
DX: M54.9 Dorsalgia, unspecified (principal); M41.85 Other forms of scoliosis, thoracolumbar region; M51.34 Other intervertebral disc degeneration, thoracic region
CPT/HCPCS: 72072

== ENCOUNTER 2020-03-17 11:10 | Emergency (ER) | payer OTHER, MEDICAID, SELFPAY ==
[2019-09-26 05:43] VITALS: BMI 33.9
[2020-03-17] VITALS (8 sets, daily range): BP systolic 145–190; BP diastolic 72–106; PULSE 64–80; RESP 18; TEMP 36.4; O2SAT 98–99
[2020-03-17 12:28] LABS: Basophils Absolute Auto 0 /uL (0-100); Basophils Percent Auto 0.5 % (0-2); Eosinophils Absolute Auto 100 /uL (0-450); Eosinophils Percent Auto 1.5 % (2-4); Hematocrit 43.4 % (36-46); Hemoglobin 14.5 g/dL (12.0-16.0); Lymphocytes Absolute Auto 3200 /uL (1100-4500); Lymphocytes Percent Auto 37.7 % (25-40); Mean Corpuscular HGB Conc 33.4 % (30-36); Mean Corpuscular Hemoglobin 28.7 PG (26-34); Mean Corpuscular Volume 86.1 fL (80-100); Monocytes Absolute Auto 700 /uL (0-900); Monocytes Percent Auto 7.9 % (3-14); Neutrophils Absolute Auto 4400 /uL (1500-7000); Neutrophils Percent Auto 52.4 % (50-75); Platelet Count 181 X10^3/uL (150-400); Red Blood Cell Count 5.04 X10^6/uL (4.0-5.2); Red Cell Distribution Width 13.6 % (11.6-14.8); White Blood Cell Count 8.4 X10^3/uL (4.5-11.0)
[2020-03-17 12:41] LABS: Add Manual Diff / Slide Review SLIDE REVIEW
[2020-03-17 12:47] LABS: Alanine Aminotransferase 24 IU/L (<35); Albumin 4.4 g/dL (3.5-5.0); Albumin Globulin Ratio 1.5 (1.0-2.8); Alkaline Phosphatase 43 U/L (38-126); Aspartate Aminotransferase 22 IU/L (14-36); BUN Creatinine Ratio 27.5 (6-22); Bilirubin Total 0.2 mg/dL (0.2-1.3); Blood Urea Nitrogen 19 mg/dL (7-17); Calcium 9.5 mg/dL (8.4-10.2); Carbon Dioxide 29 mmol/L (22-32); Chloride 105 mmol/L (98-107); Estimated Glomerular Filt Rate > 60.0 mL/min (>60); Globulin 2.9 g/dL (1.7-4.1); Glucose 92 mg/dL (70-100); HEMOLYSIS 18 (0-50); Potassium 4.4 mmol/L (3.4-5.1); Sodium 140 mmol/L (137-145); Total Protein 7.3 g/dL (6.3-8.2)
[2020-03-17 13:17] LABS: RBC Morphology Normal Morphology
--- NOTE | 2020-03-17 14:34 | ED_ITS ---
HPI - General Adult General Chief complaint: Abdominal Pain Stated complaint: thinks kidney stone Time Seen by Provider: 03/17/20 14:22 Source: patient Mode of arrival: Ambulatory Limitations: no limitations History of Present Illness HPI narrative: Patient is a 54-year-old female. Has had a hysterectomy in the past. Is here for evaluation of bilateral lower abdominal discomfort and nausea. She states she has not had a bowel movement in the past 5 days. She stated that she did drink 2 beers yesterday because this normally causes her to go the bathroom but this did not result in any bowel movements. No urinary symptoms. No fevers. No chest pain. Has never had a bowel obstruction the past. States she has had a kidney stone in the past requiring intervention that felt similar to this but not exactly. She was seen in outside facility within the past couple days for left-sided neck pain for which she had a sedated MRI. She stated she was not discharged with any pain medications. Related Data Home Medications Medication Instructions Recorded Confirmed ibuprofen 800 mg PO QDAY #0 01/29/16 02/28/20 estradiol 0.5 mg tablet 0.5 mg PO DAILY 12/12/19 02/28/20 Previous Rx's Medication Instructions Recorded bupropion HCl [Wellbutrin XL] 150 mg PO QDAY #30 tab 01/05/17 bupropion HCl [Wellbutrin XL] 300 mg PO QDAY #30 tab 01/05/17 ondansetron 4 mg PO Q6H PRN #10 tab 03/17/20 Allergies Allergy/AdvReac Type Severity Reaction Status Date / Time No Known Drug Allergies Allergy Verified 03/17/20 11:46 Review of Systems Constitutional Constitutional: Denies fatigue and Denies headache(s) ENT Ears, Nose, Mouth, and Throat: Denies headache(s) Cardiovascular Cardiovascular: Denies chest pain and Denies dyspnea Respiratory Respiratory: Denies dyspnea Gastrointestinal Gastrointestinal: Reports abdominal pain, Reports constipation, Reports nausea and Denies vomiting Genitourinary Genitourinary: Denies dysuria Genitourinary: Denies dysuria Musculoskeletal Musculoskeletal: Denies arthralgias and Denies myalgias Integumentary/Breasts Skin/Breast: Denies lesions and Denies rash Neurologic Neurologic: Denies behavioral changes and Denies headache(s) Psychiatric Psychiatric: Denies behavioral changes Endocrine Endocrine: Denies fatigue Hematologic/Lymphatic On Anticoagulants: No Allergic/Immunologic Allergic/Immunologic: Denies urticaria Patient History Medical History Acute UTI Depression Headache Lipoma of back Obstruction, uropathy UTI (urinary tract infection) Social History household members: significant other Smoking Status: Former smoker Smoking Status: Former smoker alcohol intake frequency: holidays/special occasions only Substance Use Type: does not use Exam Initial Vital Signs Initial Vital Signs: Vital Signs Temperature 97.5 F L 03/17/20 11:41 Pulse Rate 80 03/17/20 11:41 Respiratory Rate 18 03/17/20 11:41 Blood Pressure 190/106 H 03/17/20 11:41 Pulse Oximetry 99 03/17/20 11:41 Const General: cooperative and comfortable Limitations: mental status not altered HENMT Head: normal to inspection and normocephalic Resp Effort & Inspection: normal respiratory effort Auscultation: clear to auscultation bilaterally Cardio Rate: regular rate Rhythm: regular rhythm GI Inspection: non-distended Palpation: soft and tender (Lower abdomen) Skin Lesions: no lesions Rashes: no rashes Neuro General: patient alert, patient awake and patient oriented x3 Cognition: normal cognition Speech: speech normal Extrem General: normal to inspection and capillary refill normal Psych Appearance: grossly normal and well kempt Scores GCS Rigo coma scale eye opening: Spontaneous Rigo coma scale verbal response: Orientated [place] coma scale motor response: Obey commands [place] coma scale total score: 15 Course Orders Ordered: ED Orders 03/17/20 12:10 CBC Auto Diff [Complete Blood Count AUTO DIFF] Stat Comprehensive Metabolic Panel Stat 03/17/20 14:49 CT abdomen pelvis w con Stat Discontinued Medications Sodium Chloride (Normal Saline 0.9%) 1,000 mls @ 1,000 mls/hr IV BOLUS ONE Stop: 03/17/20 15:33 Last Infusion: 03/17/20 15:58 Dose: 0 mls/hr Documented by: Infusion: 03/17/20 15:09 Dose: 1,000 mls/hr Documented by: Infusion: 03/17/20 14:47 Dose: 0 mls/hr Documented by: Admin: 03/17/20 14:47 Dose: 1,000 mls/hr Documented by: VANESSA Vital Signs Vital signs: Vital Signs - 8 hr 03/17/20 11:41 03/17/20 14:06 03/17/20 14:07 Temperature 97.5 F L Pulse Rate 80 71 Respiratory Rate 18 Blood Pressure 190/106 H 145/93 H Pulse Oximetry 99 99 98 03/17/20 14:30 03/17/20 15:04 03/17/20 15:06 Temperature Pulse Rate 69 69 64 Respiratory Rate Blood Pressure 158/88 H 161/86 H Pulse Oximetry 99 98 98 03/17/20 15:30 03/17/20 15:31 Temperature Pulse Rate 67 66 Respiratory Rate Blood Pressure 151/72 H Pulse Oximetry 98 99 Medical Decision Making Lab Data Lab results reviewed: Yes I reviewed the patient's lab results. Result diagrams: 03/17/20 12:10 03/17/20 12:10 Labs: Lab Results 03/17/20 03/17/20 Range/Units 12:10 12:10 WBC 8.4 (4.5-11.0) X10^3/uL RBC 5.04 (4.0-5.2) X10^6/uL Hgb 14.5 (12.0-16.0) g/dL Hct 43.4 (36-46) % MCV 86.1 (80-100) fL MCH 28.7 (26-34) PG MCHC 33.4 (30-36) % RDW 13.6 (11.6-14.8) % Plt Count 181 (150-400) X10^3/uL Neut % (Auto) 52.4 (50-75) % Lymph % (Auto) 37.7 (25-40) % [place] % (Auto) 7.9 (3-14) % Eos % (Auto) 1.5 L (2-4) % Baso % (Auto) 0.5 (0-2) % Neut # (Auto) 4400 (4398-6040) /uL Lymph # (Auto) 3200 (7313-0799) /uL [place] # (Auto) 700 (0-900) /uL Eos # (Auto) 100 (0-450) /uL Baso # (Auto) 0 (0-100) /uL Plt Morphology Comment RBC Morphology Normal morphology Sodium 140 (137-145) mmol/L Potassium 4.4 (3.4-5.1) mmol/L Chloride 105 (98-107) mmol/L Carbon Dioxide 29 (22-32) mmol/L BUN 19 H (7-17) mg/dL Creatinine 0.69 (0.52-1.04) mg/dL Estimated GFR > 60.0 (>60) mL/min BUN/Creatinine Ratio 27.5 H (6-22) Glucose 92 (70-100) mg/dL Calcium 9.5 (8.4-10.2) mg/dL Total Bilirubin 0.2 (0.2-1.3) mg/dL AST 22 (14-36) IU/L ALT 24 (<35) IU/L Alkaline Phosphatase 43 (38-126) U/L Total Protein 7.3 (6.3-8.2) g/dL Albumin 4.4 (3.5-5.0) g/dL Globulin 2.9 (1.7-4.1) g/dL Albumin/Globulin Ratio 1.5 (1.0-2.8) Urine Dip Bedside Urine Glucose Negative Bedside Urine Bilirubin - Negative Bedside Urine Ketone - Negative Urine Specific [place] 1.030 Bedside Urine Occult Blood - Negative Bedside Urine pH 6.0 Bedside Urine Protein - Negative Bedside Urine Urobilinogen - Negative Bedside Urine Nitrite - Negative Bedside Urine Leukocytes - Negative Esterase Point of care testing: Urine Dip Bedside Urine Glucose Negative Bedside Urine Bilirubin - Negative Bedside Urine Ketone - Negative Urine Specific [place] 1.030 Bedside Urine Occult Blood - Negative Bedside Urine pH 6.0 Bedside Urine Protein - Negative Bedside Urine Urobilinogen - Negative Bedside Urine Nitrite - Negative Bedside Urine Leukocytes - Negative Esterase Imaging Data CT scan - abdomen/pelvis: Radiologist's Impression: [address] [id number] Scan ReportSigned Patient: Shireen Cerrato MMR#: [id number]: [id number]:[id number]/Sex: 54 / FDate of Service: 03/17/20Loc: EDAccession Number: [id number] Procedure: CT abdomen pelvis w con Ordering Provider: Willian Coker D.O. PROCEDURE: CT ABDOMEN PELVIS W CON INDICATIONS: Generalized abdominal pain TECHNIQUE: After the administration of oral and intravenous contrast, 5 mm thick sections acquired from the diaphragms to the symphysis. 5 mm thick coronal and sagittal reformats were performed. For radiation dose reduction, the following was used: automated exposure control, adjustment of mA and/or kV according to patient size. COMPARISON: [facility], CT, CT ABDOMEN PELVIS W CON, 09/26/2019, 3:10. FINDINGS: Image quality: Excellent. ABDOMEN: Lung bases: Lung bases are clear. Heart size is normal. Solid organs: Liver is normal in size and enhancement. Gallbladder appears normal Biliary system is non-dilated. Pancreas enhances normally. Spleen is normal in size and enhancement. No adrenal nodules. Kidneys are normal in size and enhancement, without hydronephrosis. There is a 3 mm calculus that is nonobstructive within the lower 3rd collecting system of the right kidney. Peritoneum and bowel: Stomach, small bowel, and colon loops are normal in caliber and wall thickness. No free fluid or air. Nodes and vessels: No retroperitoneal or mesenteric adenopathy. Aorta and inferior vena cava are normal in caliber. Miscellaneous: No ventral hernias. PELVIS: Genitourinary: Bladder wall thickness is normal. Miscellaneous: No inguinal hernias or adenopathy. Bones: No suspicious bony lesions. No vertebral body compression fractures. IMPRESSION: Source of generalized abdominal pain is not seen. No sign of intestinal obstruction or perforation. Isolated finding of a 3 mm calculus at the lower 3rd collecting system of the right kidney, nonobstructive. Dictated by: Darin Terry M.D. on 03/17/2020 at 15:09 Approved by: Darin Terry M.D. on 03/17/2020 at 15:11 [facility] Narrative Medical decision making narrative: Patient's labs are unremarkable, she has a benign exam. The CT scan of her abdomen shows no signs of perforation or diverticulitis. There is also no mention of a abnormally large stool burden. No indication for antibiotics. No indication for surgical evaluation. We did discuss that she could use laxatives at home if she felt that she needed to however according to the CT scan she may get little resolution of her symptoms from this. Her urine is unremarkable. I feel we can hold on further workup for now. Patient will contact her primary doctor for follow-up. She was given strict return precautions and follow-up instructions. She expressed understanding and agreement. Discharge Plan Departure Patient Disposition: Home Clinical Impression: Abdominal pain, Nausea Instructions: DI for Abdominal Pain-Adult Activity Restrictions/Additional Instructions: A prescription for nausea medication was electronically transmitted to [facility]. Take it as directed. Contact your primary provider for follow-up for and return to the emergency department for any worsening symptoms Prescriptions: New ondansetron 4 mg tablet,disintegrating 4 mg PO Q6H PRN (Reason: nausea and vomiting) Qty: 10 RF: 0 No Action estradiol 0.5 mg tablet 0.5 mg PO DAILY RF: 0 ibuprofen 800 MG tablet 800 mg PO QDAY Qty: 0 RF: 0 bupropion HCl [Wellbutrin XL] 300 MG tablet extended release 24 hr 300 mg PO QDAY Qty: 30 RF: 1 bupropion HCl [Wellbutrin XL] 150 MG tablet extended release 24 hr 150 mg PO QDAY Qty: 30 RF: 1 Referrals: Bora Segovia MD [Primary Care Provider] -
[2020-03-17] MEDS: SODIUM CHLORIDE 0.9% 1,000 ML 1000 ML IV (14:47)
--- NOTE | 2020-03-17 14:49 | DI.CT.S_ITS ---
PROCEDURE: CT ABDOMEN PELVIS W CON INDICATIONS: Generalized abdominal pain TECHNIQUE: After the administration of oral and intravenous contrast, 5 mm thick sections acquired from the diaphragms to the symphysis. 5 mm thick coronal and sagittal reformats were performed. For radiation dose reduction, the following was used: automated exposure control, adjustment of mA and/or kV according to patient size. COMPARISON: [facility], CT, CT ABDOMEN PELVIS W CON, 09/26/2019, 3:10. FINDINGS: Image quality: Excellent. ABDOMEN: Lung bases: Lung bases are clear. Heart size is normal. Solid organs: Liver is normal in size and enhancement. Gallbladder appears normal Biliary system is non-dilated. Pancreas enhances normally. Spleen is normal in size and enhancement. No adrenal nodules. Kidneys are normal in size and enhancement, without hydronephrosis. There is a 3 mm calculus that is nonobstructive within the lower 3rd collecting system of the right kidney. Peritoneum and bowel: Stomach, small bowel, and colon loops are normal in caliber and wall thickness. No free fluid or air. Nodes and vessels: No retroperitoneal or mesenteric adenopathy. Aorta and inferior vena cava are normal in caliber. Miscellaneous: No ventral hernias. PELVIS: Genitourinary: Bladder wall thickness is normal. Miscellaneous: No inguinal hernias or adenopathy. Bones: No suspicious bony lesions. No vertebral body compression fractures. IMPRESSION: Source of generalized abdominal pain is not seen. No sign of intestinal obstruction or perforation. Isolated finding of a 3 mm calculus at the lower 3rd collecting system of the right kidney, nonobstructive. Dictated by: Darin Terry M.D. on 03/17/2020 at 15:09 Approved by: Darin Terry M.D. on 03/17/2020 at 15:11
== END 2020-03-17 16:08 | disposition home or self-care (01) ==
PROVIDERS: Emergency Provider Emergency Medicine; Family Provider Family Medicine; PCP Family Medicine
DX: R10.30 Lower abdominal pain, unspecified (principal); R11.0 Nausea; K59.00 Constipation, unspecified
CPT/HCPCS: 36415; 74177; 80053; 81003; 85025; 96360; 99283; 99285; Q9967

== ENCOUNTER → 2020-06-23 12:34 | Outpatient (CLI) | payer OTHER, MEDICAID, SELFPAY ==
[2020-05-12 11:34] VITALS: BMI 33.9
[2020-06-23 23:12] LABS: COVID19 - ORCAS (NP or Nasal) Negative (Negative)
== END ==
PROVIDERS: Family Provider Family Medicine; PCP Family Medicine; Visit Provider Family Medicine
DX: Z20.822 Contact with and (suspected) exposure to COVID-19 (principal); Z01.818 Encounter for other preprocedural examination
CPT/HCPCS: U0003

== ENCOUNTER 2020-06-24 09:26 | Outpatient (CLI) | payer OTHER, SELFPAY ==
[2020-05-12 11:34] VITALS: BMI 33.9
[2020-06-24] VITALS (11 sets, daily range): BP systolic 89–132; BP diastolic 50–88; PULSE 14–83; RESP 10–19; TEMP 36.2; O2SAT 92–98
--- NOTE | 2020-06-24 09:42 | DI.RAD.S_ITS ---
PROCEDURE: PAIN C/T INTERLAMINAR INJECT INDICATIONS: Spondylosis without myelopathy or radiculopathy, c COMPARISON: [facility], CR, XR CERVICAL SPINE 6+ VIEWS, 03/17/2020, 10:30. FINDINGS: Fluoroscopic spot filming was performed to verify placement of a spinal needle at the C6-C7 level, as labeled on the films. Appropriate location of the needle tip was confirmed by injection of iodinated contrast. IMPRESSION: No significant intraprocedural abnormality. Dictated by: Devyn Garcia M.D. on 06/24/2020 at 10:16 Approved by: Devyn Garcia M.D. on 06/24/2020 at 10:17
[2020-06-24] MEDS: fentaNYL 100 MCG/2 ML INJ 50 MCG IV (10:17)
[2020-06-24] MEDS: IOPAMIDOL 15 ML VIAL 3 ML INJ (10:22)
[2020-06-24] MEDS: BUPIVACAINE 0.25% (PF) VIAL 2 ML INJ (10:23)
[2020-06-24] MEDS: DEXAMETHASONE 10 MG/ML VIAL 30 MG INJ (10:23)
[2020-06-24] MEDS: MIDAZOLAM 5 MG/5 ML VIAL IV (10:30)
--- NOTE | 2020-06-24 10:38 | P.PCN_ITS ---
Date/Time/Diagnoses Date of procedure: 06/24/20 Time of procedure: 10:38 Pre-procedure diagnosis: 1. CERVICAL STENOSIS, 2. CERVICAL HNP WITH UPPER EXTREMITY RADICULAR FEATURES Post-procedure diagnosis: same Procedure Notes Procedure: 1. FLUORSCOPICALLY GUIDED CONTRAST CONTROLLED INTERLAMINAR EPIDURAL STEROID INJECTION - C6/7 TL JIM Indications: Shireen is referred by Dr. Segovia for treatment of Cervical HNP with Upper Extremity Paresthesias. Physician: Eliazar Foote Total Fluoroscopy time (seconds): 33 Total sedation minutes: 17 Complications: none Procedure in detail & Post-procedure care: FINDINGS Cervical Stenosis due to disc deterioration and nerve root irritation and nerve root irritation DESCRIPTION OF PROCEDURE Fluoroscopically guided, contrast-controlled C6/7 translaminar epidural steroid injection with conscious sedation. Following review of allergy and review of potential side effects and complications, including, but not necessarily limited to, infection, allergic reaction, local tissue breakdown, temporary as well as permanent nerve injury, stroke, paralysis, and possible , the patient indicated that patient understood and agreed to proceed. An informed consent document was signed by the patient, witnessed by a nurse, and placed in the patient's chart. Additionally, other treatment options including modalities, medications, and physical therapy were reviewed with the patient. After review of previous anaesthesic history and IV conscious sedation the patient was deemed safe to proceed with today?s procedure with IV conscious sedation as ASA class II designation. Safety time-out was performed to confirm patient ID, procedure to be performed and site of procedure. IV sedation was accomplished with a combination of 3mg of Versed and 50mcg of Fentanyl administered by the RN after DO order, titrated to patient comfort during the course of the procedure while the patient remained responsive to all verbal commands. In the prone position, following sterile prep and drape of the cervical region, the C6/7 translaminar space was identified fluoroscopically. The skin was anesthetized via a 25-gauge 1.5-inch needle with 1% lidocaine solution. At this point, a 25-gauge, 2.5-inch short bevel spinal needle was atraumatically introduced and advanced under fluoroscopic guidance into epidural space at the C6/7 translaminar space. Depth was confirmed on lateral view. Radiological data, including multiple fluoroscopic views of the cervical spine, reveal a spinal needle at the C6/7 translaminar space. Lateral views then show placement of the needle in the epidural space. Subsequent views show contrast material flowing superiorly and inferiorly in the epidural space. DSA fluoroscopy with live contrast injection, once again, confirmed no vascular or intrathecal uptake. At this point, using loss of resistance technique with saline and air, the epidural space was entered. Following negative aspiration, injection of debra roximately 1.5 cc of Isovue-200 with live fluoroscopy in the AP view confirmed epidural flow in the epidural space without vascular or intrathecal uptake observed. Subsequently, a test dose of 1cc of 1% lidocaine solution was injected and patient was observed for two minutes without signs or symptoms of complications, including abdominal pain, shortness of breath, bilateral upper or lower extremity weakness, nausea and vomiting, prior to steroid injection. At this point, 3cc or 30mg of dexamethasone was then injected without incident. The patient tolerated the procedure well without signs or symptoms of complications prior to being transferred to the recovery area for further monitoring, The patient was then transferred to the recovery area where they were observed for an appropriate period of time after the injection. The patient reported a VAS score of 6 prior to the procedure and a post-procedure VAS of 0. POST OP INSTRUCTIONS The patient was provided a Pain Log to continue to record their response to the target-specific procedure prior to follow-up visit with the referring provider. Additionally, specific post-injection care instructions and a contact number to our office were provided if concerns arise regarding possible complications associated with the procedure are suspected.
== END 2020-06-24 11:03 | disposition home or self-care (01) ==
LOC: RAD 09:31
PROVIDERS: Family Provider Family Medicine; PCP Family Medicine; Referring Provider Physical Medicine & Rehabilitation; Visit Provider Physical Medicine & Rehabilitation
DX: M48.02 Spinal stenosis, cervical region (principal); M50.123 Cervical disc disorder at C6-C7 level with radiculopathy
CPT/HCPCS: 62321; 99152; 99153; J1100; J2250; J3010

== ENCOUNTER 2020-09-09 09:11 | Outpatient (CLI) | payer OTHER, SELFPAY ==
[2020-08-20 11:11] VITALS: BMI 33.9
[2020-09-09] VITALS (8 sets, daily range): BP systolic 115–141; BP diastolic 67–82; PULSE 68–76; RESP 12–20; TEMP 36.2; O2SAT 93–98
--- NOTE | 2020-09-09 09:12 | DI.RAD.S_ITS ---
PROCEDURE: PAIN C/T FACET INJ/BLK 1ST L INDICATIONS: SPINAL STENOSIS COMPARISON: None. FINDINGS: Fluoroscopic spot filming was performed to verify placement of spinal needles at the left C4-C5, C5-C6 and C6-C7 facet joints. level(s), as labeled on the films. Appropriate location(s) of the needle tip(s) was confirmed by injection of iodinated contrast. IMPRESSION: Access needles at the left C4-C5, C5-C6 and C6-C7 facet joints. Dictated by: Nevin Ugalde MD, PhD on 09/09/2020 at 11:09 Approved by: Nevin Ugalde MD, PhD on 09/09/2020 at 11:10
[2020-09-09] MEDS: MIDAZOLAM 5 MG/5 ML VIAL IV (10:03)
[2020-09-09] MEDS: fentaNYL 100 MCG/2 ML INJ 50 MCG IV (10:03)
[2020-09-09] MEDS: DEXAMETHASONE 10 MG/ML VIAL 30 MG INJ (10:07)
[2020-09-09] MEDS: IOPAMIDOL 15 ML VIAL 3 ML INJ (10:07)
[2020-09-09] MEDS: BUPIVACAINE 0.25% (PF) VIAL 5 ML SUBCUT (10:08)
--- NOTE | 2020-09-09 10:24 | P.PCN_ITS ---
Date/Time/Diagnoses Date of procedure: 09/09/20 Time of procedure: 10:24 Pre-procedure diagnosis: 1. FACET ARTHROPATHY 2. AXIAL NECK PAIN Post-procedure diagnosis: same Procedure Notes Procedure: 1. FLUOROSCOPICALLY GUIDED, CONTRAST-CONTROLLED LEFT C4/5, C5/6 AND C6/7 FACET JOINT INJECTIONS WITH CONSCIOUS SEDATION. Indications: Shireen is referred by Dr. Segovia for treatment of Axial Neck Pain Physician: Eliazar Foote Total Fluoroscopy time (seconds): 12 Total sedation minutes: 15 Complications: none Procedure in detail & Post-procedure care: DESCRIPTION OF PROCEDURE Fluoroscopically guided, contrast-controlled left C4/5, C5/6 and C6/7 facet joint injections with conscious sedation. Following review of allergy and review of potential side effects and complications, including, but not necessarily limited to, infection, allergic reaction, local tissue breakdown, stroke, temporary or permanent nerve injury and paralysis, the patient indicated that the patient understood and agreed to proceed. An informed consent document was signed by the patient, witnessed by a nurse, and placed in the patient's chart. Additionally, other treatment options including medications, modalities, and physical therapy were reviewed with the patient. After review of previous anaesthesic history and IV conscious sedation the patient was deemed safe to proceed with today?s procedure with IV conscious sedation as ASA class II designation. Safety time-out was performed to confirm patient ID, procedure to be performed and site of procedure. IV sedation was accomplished with a combination of 3mg of Versed and 50mcg of Fentanyl was administered by the RN after DO order, titrated to patient comfort during the course of the procedure while the patient remained responsive to all verbal commands In the prone position, following sterile prep and drape of the cervical spine region, the posterior aspect of the left C4/5, C5/6 and C6/7 facet joints were identified fluoroscopically. The skin was anesthetized via a 25-gauge 1.5-inch needle with 1% lidocaine solution into the corresponding facet joints. At this point, a 25-gauge 2.5-inch spinal needle was atraumatically introduced and advanced under fluoroscopic guidance into the corresponding facet joints. Following negative aspiration, injections of approximately 0.2cc of Isovue 200 confirmed interarticular placement without vascular uptake. At this point, a total of 1cc including 0.5cc or 5mg of dexamethasone combined with 0.5cc of 1% lidocaine solution was injected without complication into each of the corresponding facet joints. The procedure tolerated the procedure well without signs or symptoms of complications prior to transfer to the recovery area continued monitoring without incident. The patient was then transferred to the recovery area where they were observed for an appropriate period of time after the injection. The patient reported a VAS score of 7 prior to the procedure and a post- procedure VAS of 0. POST OP INSTRUCTIONS They were provided a Pain Log to continue to record their response to the target-specific procedure prior to their follow-up visit with their referring physician. Additionally, specific post-injection care instructions and a contact number to our office were provided if concerns arise regarding possible complications associated with the procedure are suspected.
== END 2020-09-09 10:39 | disposition home or self-care (01) ==
LOC: RAD 09:12
PROVIDERS: Family Provider Family Medicine; Referring Provider Physical Medicine & Rehabilitation; Visit Provider Physical Medicine & Rehabilitation
DX: M47.812 Spondylosis without myelopathy or radiculopathy, cervical region (principal); M54.2 Cervicalgia
CPT/HCPCS: 64490; 64491; 64492; 99152; J1100; J2250; J3010

== ENCOUNTER → 2021-01-02 13:59 | Outpatient (CLI) | payer OTHER, SELFPAY ==
[2020-08-20 11:11] VITALS: BMI 33.9
--- NOTE | 2021-01-02 | DI.MG.S_ITS ---
BILATERAL DIGITAL SCREENING MAMMOGRAM 3D/2D WITH CAD: 01/02/2021 CLINICAL: Routine screening. Family history of breast cancer. Comparison is made to exams dated: 01/05/2016 mammogram, 07/03/2012 mammogram, and 05/25/2011 mammogram - [facility]. The tissue of both breasts is heterogeneously dense. This may lower the sensitivity of mammography. Current study was also evaluated with a Computer Aided Detection (CAD) system. There is a new oval focal asymmetry in the left breast at 4 o'clock anterior depth. No other significant masses, calcifications, or other findings are seen in either breast. IMPRESSION: INCOMPLETE: NEEDS ADDITIONAL IMAGING EVALUATION The new oval focal asymmetry in the left breast resembles a cyst and is indeterminate. Additional views with possible ultrasound are recommended. This exam was interpreted at Station ID: [id number]. NOTE: For mammograms, a report in lay terms will be sent to the patient. Approximately 15% of breast malignancies will not be visualized mammographically. In the management of a palpable breast mass, a negative mammogram must not discourage biopsy of a clinically suspicious lesion. Electronically Signed By: Reynaldo maza/lyssa:01/02/2021 15:19:37 letter sent: Additional Imaging Needed ACR BI-RADS Category 0: Incomplete [id number]
== END ==
PROVIDERS: Family Provider Family Medicine; PCP Family Medicine; Referring Provider Family Medicine; Visit Provider Family Medicine
DX: Z12.31 Encounter for screening mammogram for malignant neoplasm of breast (principal); Z80.3 Family history of malignant neoplasm of breast
CPT/HCPCS: 77063; 77067

== ENCOUNTER 2021-01-09 18:23 | Emergency (ER) | payer OTHER, MEDICAID, SELFPAY ==
[2020-08-20 11:11] VITALS: BMI 33.9
[2021-01-09] VITALS (8 sets, daily range): BP systolic 122–162; BP diastolic 67–92; PULSE 72–89; RESP 14–18; TEMP 36.6; O2SAT 95–98; BMI 33.4
[2021-01-09 19:06] LABS: Add Manual Diff / Slide Review NO; Basophils Absolute Auto 0 /uL (0-100); Basophils Percent Auto 0.3 % (0-2); Eosinophils Absolute Auto 0 /uL (0-450); Eosinophils Percent Auto 0.6 % (2-4); Hematocrit 41.2 % (36-46); Hemoglobin 13.8 g/dL (12.0-16.0); Lymphocytes Absolute Auto 1500 /uL (1100-4500); Mean Corpuscular HGB Conc 33.6 % (30-36); Mean Corpuscular Hemoglobin 28.6 PG (26-34); Mean Corpuscular Volume 85.3 fL (80-100); Monocytes Absolute Auto 500 /uL (0-900); Monocytes Percent Auto 6.8 % (3-14); Neutrophils Absolute Auto 5000 /uL (1500-7000); Neutrophils Percent Auto 71.3 % (50-75); Platelet Count 140 X10^3/uL (150-400); Red Blood Cell Count 4.83 X10^6/uL (4.0-5.2); Red Cell Distribution Width 14.6 % (11.6-14.8)
[2021-01-09 19:16] LABS: Alanine Aminotransferase 28 IU/L (<35); Albumin 4.5 g/dL (3.5-5.0); Albumin Globulin Ratio 1.6 (1.0-2.8); Alkaline Phosphatase 47 U/L (38-126); Aspartate Aminotransferase 25 IU/L (14-36); BUN Creatinine Ratio 18.8 (6-22); Bilirubin Total 0.5 mg/dL (0.2-1.3); Blood Urea Nitrogen 12 mg/dL (7-17); Calcium 9.4 mg/dL (8.4-10.2); Carbon Dioxide 28 mmol/L (22-32); Chloride 100 mmol/L (98-107); Estimated Glomerular Filt Rate > 60.0 mL/min (>60); Globulin 2.8 g/dL (1.7-4.1); Glucose 100 mg/dL (70-100); HEMOLYSIS < 15 (0-50); Lipase 82 U/L (23-300); Potassium 4.2 mmol/L (3.4-5.1); Sodium 137 mmol/L (137-145); Total Protein 7.3 g/dL (6.3-8.2)
[2021-01-09] MEDS: ONDANSETRON 4 MG/2 ML INJ IV (19:39)
--- NOTE | 2021-01-09 19:47 | DI.CT.S_ITS ---
PROCEDURE: CT ABDOMEN PELVIS W CON INDICATIONS: RLQ pain TECHNIQUE: After the administration of intravenous contrast, axial sections acquired from the lung bases to the pubic symphysis. Coronal and sagittal reformats were performed. For radiation dose reduction, the following was used: automated exposure control, adjustment of mA and/or kV according to patient size. COMPARISON: [facility], CT, CT ABDOMEN PELVIS W CON, 09/26/2019, 3:10. [facility], CT, CT ABDOMEN PELVIS W CON, 03/17/2020, 14:49. FINDINGS: ABDOMEN: Lung bases: No acute findings. Heart: No pericardial effusion. Normal in size. Liver: Hepatic steatosis. Gallbladder: Unremarkable Bile ducts: Normal. Pancreas: Normal. Spleen: Normal. Adrenals: Unchanged possible nodule hyperplasia of the left adrenal gland. The right adrenal gland unremarkable. Kidneys and Ureters: Nonobstructive right nephrolithiasis measuring up to 3 mm. Slightly rotated right kidney, incidental finding. The ureters appear decompressed. Stomach and duodenum: Normal. Bowel: Appendix is noted in the right lower quadrant and no definite pathologic enlargement. There is mild inflammatory stranding seen in the right lower quadrant although somewhat distant from the appendix. This seems to be centered about right lower quadrant shotty lymph nodes raising possibility of low-grade mesenteric adenitis without pathologic enlargement. Other: No free fluid or air. Abdominal nodes: Shotty retroperitoneal lymph nodes also noted without pathologic enlargement. Aorta and IVC: Normal in size. Ventral wall: Normal. PELVIS: Bladder and reproductive: Circumferential bladder wall thickening, raising possibility of age-indeterminate cystitis. Inguinal region: No hernia. Pelvic nodes: Normal. Bones: No suspicious bony lesions. No vertebral body compression fractures. Diffuse spondylytic changes and facet disease. IMPRESSION: Mild inflammatory stranding seen the right lower quadrant although somewhat distant from the appendix and seems to be centered about few shoddy lymph nodes without pathologic enlargement . Findings raise the possibility of mesenteric adenitis. Please correlate clinically and if necessary, short interval CT follow-up could be performed after treatment. Circumferential bladder wall thickening raising possibility of cystitis. Please correlate clinically and with urinalysis since the acuity is unknown. Additional chronic and incidental findings as above. Dictated by: Kenny Son M.D. on 01/09/2021 at 20:37 Approved by: Kenny Son M.D. on 01/09/2021 at 20:43
[2021-01-09] MEDS: SODIUM CHLORIDE 0.9% 1,000 ML 1000 ML IV (20:08)
[2021-01-09] MEDS: KETOROLAC 30 MG/ML VIAL 15 MG IV (20:09)
--- NOTE | 2021-01-09 21:57 | ED.ABDPAIN ---
HPI - Abdominal Pain General Chief Complaint: Abdominal Pain Stated Complaint: R/O Appe Time Seen by Provider: 01/09/21 19:10 Source: patient Mode of arrival: Ambulatory Limitations: no limitations History of Present Illness HPI narrative: 55-year-old female occasional smoker with history of kidney stone and orthopedic injuries presents at the request of her primary care provider for evaluation of a possible appendicitis. She is developed rather rapidly worsening right lower quadrant pain that has since begun to radiate somewhat to her back. She states her symptoms are significantly worse with motion and improves with rest. She denies urinary complaints such as dysuria, frequency or urgency. She denies any change in bowel habits such as constipation or diarrhea. She has had no nausea or vomiting but does feel a somewhat decreased appetite over the past day or so. She has had no vaginal bleeding or discharge in had a hysterectomy years ago. Her last oral intake was at about 6:15 p.m. Related Data Home Medications Medication Instructions Recorded Confirmed estradiol 1 mg tablet mg PO DAILY tab 06/04/20 10/24/20 Previous Rx's Medication Instructions Recorded bupropion HCl 150 mg 24 hr tablet, 150 mg PO QDAY #30 tab 01/05/17 extended release (Wellbutrin XL) bupropion HCl 300 mg 24 hr tablet, 300 mg PO QDAY #30 tab 01/05/17 extended release (Wellbutrin XL) cyclobenzaprine 10 mg tablet 10 mg PO BID PRN #60 tab 10/24/20 celecoxib 200 mg capsule (Celebrex) 200 mg PO DAILY #90 cap 12/25/20 amoxicillin 875 mg-potassium 1 tab PO BID #20 tab 01/09/21 clavulanate 125 mg tablet (Augmentin) hydrocodone 5 mg-acetaminophen 325 1 tab PO Q4-6H PRN #10 tab 01/09/21 mg tablet ondansetron 4 mg disintegrating 4 mg PO TID-QID PRN #10 tab 01/09/21 tablet Allergies Allergy/AdvReac Type Severity Reaction Status Date / Time No Known Drug Allergies Allergy Verified 01/09/21 18:46 Review of Systems Review of Systems Narrative: GENERAL: See HPI HEENT: Denies sinus pain, ear pain, sore throat, difficulty swallowing, dizziness. RESPIRATORY: Denies dyspnea, cough, wheezing, hemoptysis, sputum. CARDIOVASCULAR: Denies chest pain, palpitations, orthopnea, edema, GASTROINTESTINAL: See HPI : See HPI MUSCULOSKELETAL: denies weakness, joint pain, or bony pain SKIN: Denies rash, skin lesions, or other NEUROLOGIC: Denies weakness, headache, numbness, change in speech, confusion, seizures, incoordination. PSYCHIATRIC: No concerning psychosocial issues. 12 point review of systems is negative except for those stated above Patient History Medical History Acute UTI Cervical root disorders, not elsewhere classified Depression Facet arthropathy, cervical Headache Herniated nucleus pulposus, C6-7 Lipoma of back Obstruction, uropathy Strain of muscle and tendon of unspecified wall of thorax, subsequent encounter UTI (urinary tract infection) Social History household members: significant other Smoking Status: Current some day smoker Smoking Status: Current some day smoker alcohol intake frequency: holidays/special occasions only Substance Use Type: does not use Exam Narrative Exam Narrative: GENERAL: [55 year old patient appears stated age. Well-developed patient, in mild distress. HEAD: Atraumatic. Normocephalic. EYES: Pupils equal round and reactive. Extraocular motions intact. No scleral icterus. No injection or drainage. ENT: Nose without bleeding, purulent drainage. Throat without erythema, tonsillar hypertrophy or exudate. Airway patent. NECK: Trachea midline. Non tender CARDIOVASCULAR: Regular rate and rhythm without murmurs, gallops, or rubs. RESPIRATORY: Clear to auscultation. Breath sounds equal bilaterally. No wheezes, rales, or rhonchi. GASTROINTESTINAL: Abdomen soft, tender in the right lower quadrant without rebound. nondistended. Negative Rovsing's, psoas or obturator's EXTREMITIES: No edema or joint tenderness. BACK: Nontender without deformity or crepitance. No flank tenderness. NEURO: AOx3. SKIN: No rash or erythema of visible areas Initial Vital Signs Initial Vital Signs: Vital Signs Temperature 97.9 F 01/09/21 18:46 Pulse Rate 88 01/09/21 18:46 Respiratory Rate 14 01/09/21 18:46 Blood Pressure 162/85 H 01/09/21 18:46 Pulse Oximetry 97 01/09/21 18:46 Course Orders Ordered: ED Orders 01/09/21 18:58 Complete Blood Count AUTO DIFF Stat Comprehensive Metabolic Panel Stat Lipase Stat 01/09/21 19:47 CT abdomen pelvis w con Stat Discontinued Medications Hydrocodone Bitart/Acetaminophen (Hydrocodone/Acet 5/325 Prepack) 1 bottle MISC SEEINSTR ONE Stop: 01/09/21 21:58 Last Admin: 01/09/21 22:13 Dose: 1 bottle Documented by: DENITA Amoxicillin/Clavulanate Potassium (Amoxicillin/Clav 875/125 Mg) 1 tab PO NOW ONE Stop: 01/09/21 21:58 Last Admin: 01/09/21 22:13 Dose: 1 tab Documented by: DENITA Sodium Chloride (Normal Saline 0.9%) 1,000 mls @ 1,000 mls/hr IV BOLUS ONE Stop: 01/09/21 20:33 Last Infusion: 01/09/21 21:17 Dose: 0 mls/hr Documented by: Admin: 01/09/21 20:08 Dose: 1,000 mls/hr Documented by: DENITA Ketorolac Tromethamine (Ketorolac 30 Mg/Ml Vial) 15 mg IV NOW ONE Stop: 01/09/21 19:35 Last Admin: 01/09/21 20:09 Dose: 15 mg Documented by: DENITA Ondansetron HCl (Ondansetron 4 Mg/2 Ml Inj) 4 mg IV NOW ONE Stop: 01/09/21 18:51 Last Admin: 01/09/21 19:39 Dose: 4 mg Documented by: DENITA Ondansetron HCl (Ondansetron 4 Mg/2 Ml Inj) 4 mg IV NOW ONE Stop: 01/09/21 19:35 Last Admin: 01/09/21 19:41 Dose: Not Given Documented by: DENITA Ondansetron HCl (Ondansetron 4 Mg Odt Prepack) 1 bottle MISC SEEINSTR ONE Stop: 01/09/21 21:58 Last Admin: 01/09/21 22:13 Dose: 1 bottle Documented by: DENITA Vital Signs Vital signs: Vital Signs - 8 hr 01/09/21 18:46 01/09/21 19:10 01/09/21 19:30 Temperature 97.9 F Pulse Rate 88 89 86 Respiratory Rate 14 Blood Pressure 162/85 H 137/87 136/92 H Pulse Oximetry 97 96 97 01/09/21 20:05 01/09/21 20:14 01/09/21 20:30 Temperature Pulse Rate 84 78 74 Respiratory Rate Blood Pressure 126/82 Pulse Oximetry 95 98 97 01/09/21 21:00 01/09/21 21:59 Temperature Pulse Rate 72 80 Respiratory Rate 18 Blood Pressure 122/67 146/72 H Pulse Oximetry 98 96 MDM - Abdominal Pain Lab Data Result diagrams: 01/09/21 18:58 01/09/21 18:58 Labs: Lab Results 01/09/21 01/09/21 Range/Units 18:58 18:58 WBC 7.0 (4.5-11.0) X10^3/uL RBC 4.83 (4.0-5.2) X10^6/uL Hgb 13.8 (12.0-16.0) g/dL Hct 41.2 (36-46) % MCV 85.3 (80-100) fL MCH 28.6 (26-34) PG MCHC 33.6 (30-36) % RDW 14.6 (11.6-14.8) % Plt Count 140 L (150-400) X10^3/uL Neut % (Auto) 71.3 (50-75) % Lymph % (Auto) 21.0 L (25-40) % [place] % (Auto) 6.8 (3-14) % Eos % (Auto) 0.6 L (2-4) % Baso % (Auto) 0.3 (0-2) % Neut # (Auto) 5000 (8350-2749) /uL Lymph # (Auto) 1500 (6201-5186) /uL [place] # (Auto) 500 (0-900) /uL Eos # (Auto) 0 (0-450) /uL Baso # (Auto) 0 (0-100) /uL Sodium 137 (137-145) mmol/L Potassium 4.2 (3.4-5.1) mmol/L Chloride 100 (98-107) mmol/L Carbon Dioxide 28 (22-32) mmol/L BUN 12 (7-17) mg/dL Creatinine 0.64 (0.52-1.04) mg/dL Estimated GFR > 60.0 (>60) mL/min BUN/Creatinine Ratio 18.8 (6-22) Glucose 100 (70-100) mg/dL Calcium 9.4 (8.4-10.2) mg/dL Total Bilirubin 0.5 (0.2-1.3) mg/dL AST 25 (14-36) IU/L ALT 28 (<35) IU/L Alkaline Phosphatase 47 (38-126) U/L Total Protein 7.3 (6.3-8.2) g/dL Albumin 4.5 (3.5-5.0) g/dL Globulin 2.8 (1.7-4.1) g/dL Albumin/Globulin Ratio 1.6 (1.0-2.8) Lipase 82 (23-300) U/L Point of care testing: Urine Dip Bedside Urine Glucose Negative Bedside Urine Bilirubin - Negative Bedside Urine Ketone +++ 80 Urine Specific [place] 1.025 Bedside Urine Occult Blood - Negative Bedside Urine pH 6.0 Bedside Urine Protein - Negative Bedside Urine Urobilinogen - Negative Bedside Urine Nitrite - Negative Bedside Urine Leukocytes - Negative Esterase Imaging Data CT scan - abdomen/pelvis: Radiologist's Impression: Launch?[place] [address] CT Scan Report Signed Patient: Shireen Cerrato MR#: [id number] : 1965 Acct:[id number] Age/Sex: 55 / F Date of Service: 01/09/21 Loc: ED Accession Number: [id number] ?? Procedure: CT abdomen pelvis w con Ordering Provider: Alfonzo Staton D.O. PROCEDURE:? CT ABDOMEN PELVIS W CON ? INDICATIONS:? RLQ pain ? TECHNIQUE:? After the administration of intravenous contrast, axial sections acquired from the lung bases to the pubic symphysis.? Coronal and sagittal reformats were performed.? For radiation dose reduction, the following was used:? automated exposure control, adjustment of mA and/or kV according to patient size.? ? COMPARISON:? [facility], CT, CT ABDOMEN PELVIS W CON, 09/26/2019, 3:10.? [facility], CT, CT ABDOMEN PELVIS W CON, 03/17/2020, 14:49. ? FINDINGS: ABDOMEN:? Lung bases:? No acute findings. Heart:? No pericardial effusion. Normal in size.? ? Liver:? Hepatic steatosis. Gallbladder:? Unremarkable Bile ducts: Normal. Pancreas: Normal.? Spleen: Normal.? Adrenals:? Unchanged possible nodule hyperplasia of the left adrenal gland.? The right adrenal gland unremarkable. Kidneys and Ureters:? Nonobstructive right nephrolithiasis measuring up to 3 mm.? Slightly rotated right kidney, incidental finding.? The ureters appear decompressed.? Stomach and duodenum: Normal. Bowel:? Appendix is noted in the right lower quadrant and no definite pathologic enlargement.? There is mild inflammatory stranding seen in the right lower quadrant although somewhat distant from the appendix.? This seems to be centered about right lower quadrant shotty lymph nodes raising possibility of low-grade mesenteric adenitis without pathologic enlargement. Other:? No free fluid or air.? Abdominal nodes:? Shotty retroperitoneal lymph nodes also noted without pathologic enlargement. Aorta and IVC: Normal in size.? ? Ventral wall: Normal. ? PELVIS:? ? Bladder and reproductive:? Circumferential bladder wall thickening, raising possibility of age-indeterminate cystitis. Inguinal region: No hernia.? Pelvic nodes: Normal.? ? Bones:? No suspicious bony lesions.? No vertebral body compression fractures. Diffuse spondylytic changes and facet disease. ? ? IMPRESSION: ? Mild inflammatory stranding seen the right lower quadrant although somewhat distant from the appendix and seems to be centered about few shoddy lymph nodes without pathologic enlargement .? Findings raise the possibility of mesenteric adenitis.? Please correlate clinically and if necessary, short interval CT follow-up could be performed after treatment. ? Circumferential bladder wall thickening raising possibility of cystitis.? Please correlate clinically and with urinalysis since the acuity is unknown. ? Additional chronic and incidental findings as above.? ? ? Dictated by: Kenny Son M.D. on 01/09/2021 at 20:37 ? ? Approved by: Kenny Son M.D. on 01/09/2021 at 20:43 ? MDM Narrative Medical decision making narrative: Patient with concern for appendicitis versus kidney stone versus pyelonephritis versus bowel obstruction versus other. She has had no fever chills nor any vomiting, has no elevated white blood cells and CT demonstrates no kidney stone, and no evidence of appendicitis. There is some stranding and questionable findings consistent with mesenteric adenitis. Patient's pain is well controlled, she is tolerating orals. We did discuss that though unlikely, this could be early appendicitis and close follow-up is appropriate. We discussed return precautions and questions have been answered to her apparent satisfaction. Discharge Plan Departure Patient Disposition: Home Clinical Impression: Acute mesenteric adenitis Instructions: DI for Abdominal Pain-Adult Activity Restrictions/Additional Instructions: *You have been diagnosed with [right lower quadrant pain, labs and CT scan are very reassuring and there is no evidence of appendicitis, kidney stone, bowel obstruction. Radiologist does suggest the likely diagnosis of mesenteric adenitis which we discussed *What to do: *Please continue to take your regular medications as directed. [x ] New medication prescriptions sent to your pharmacy: [[facility] in [place] ] [ ] New medication written as a paper prescription [ ] No new medications given *Please follow up with your primary care provider in 2-3 days, call for an appointment. Let them know you were seen in the Emergency Department and that we ask that you be seen in follow up. We will electronically transmit a record of today's note if your PCP is in our system *If you do not have a primary care provider please contact the [facility] Resource line at [phone]. They will ask some questions about your medical history and help get you set up with a doctor in the community. *Return to Emergency Department if you should have any new, worsening or concerning symptoms, such as [fever greater than 101 F, shaking chills, worsening pain, persistent vomiting or other bothersome symptoms] You have been prescribed a short course of narcotic medications. These are potentially dangerous and addictive medications that should be used carefully. While on these medications you cannot drive or operate heavy machinery. Additionally, you cannot sign legal documents or perform any duties such as this. Many people get constipated on narcotic medications so it would be advisable to discuss stool softeners with the pharmacist when you tack picker your prescription. Please understand that we cannot provide further refills of narcotics or controlled substances through the ED and your pain management will need to be through your Primary Care Provider Prescriptions: New hydrocodone-acetaminophen 5-325 mg tablet 1 tab PO Q4-6H PRN (Reason: pain) Qty: 10 0RF ondansetron 4 mg tablet,disintegrating 4 mg PO TID-QID PRN (Reason: nausea and vomiting) Qty: 10 0RF amoxicillin-pot clavulanate [Augmentin] 875-125 mg tablet 1 tab PO BID Qty: 20 0RF No Action bupropion HCl [Wellbutrin XL] 300 MG tablet extended release 24 hr 300 mg PO QDAY Qty: 30 1RF bupropion HCl [Wellbutrin XL] 150 MG tablet extended release 24 hr 150 mg PO QDAY Qty: 30 1RF celecoxib [Celebrex] 200 mg capsule 200 mg PO DAILY Qty: 90 2RF estradiol 1 mg TABLET PO DAILY 0RF cyclobenzaprine 10 mg tablet 10 mg PO BID PRN (Reason: muscle spasm) Qty: 60 1RF Referrals: Ethel Gerber MD [Primary Care Provider] -
[2021-01-09] MEDS: HYDROCODONE/ACET 5/325 PREPACK 1 BOTTLE MISC (22:13)
[2021-01-09] MEDS: AMOXICILLIN/CLAV 875/125 MG 1 TAB PO (22:13)
[2021-01-09] MEDS: ONDANSETRON 4 MG ODT PREPACK 1 BOTTLE MISC (22:13)
== END 2021-01-09 22:43 | disposition home or self-care (01) ==
PROVIDERS: Emergency Provider Emergency Medicine; Family Provider Family Medicine; PCP Family Medicine
DX: I88.0 Nonspecific mesenteric lymphadenitis (principal)
CPT/HCPCS: 36415; 74177; 80053; 81003; 83690; 85025; 96374; 96375; 99284; J1885; J2405; Q9967

== ENCOUNTER → 2021-02-02 09:41 | Outpatient (CLI) | payer OTHER, MEDICAID, SELFPAY ==
[2020-08-20 11:11] VITALS: BMI 33.9
--- NOTE | 2021-02-02 | DI.MG.S_ITS ---
UNILATERAL LEFT DIGITAL DIAGNOSTIC MAMMOGRAM 3D/2D WITH ADDITIONAL VIEWS: 02/02/2021 CLINICAL: Additional evaluation requested from prior study. Comparison is made to exams dated: 01/02/2021 mammogram, 01/05/2016 mammogram, and 07/03/2012 mammogram - [facility]. The tissue of left breast is heterogeneously dense. This may lower the sensitivity of mammography. There is a stable oval focal asymmetry in the left breast at 4 o'clock anterior depth. No other significant masses or calcifications are seen in the breast. IMPRESSION: INCOMPLETE: NEEDS ADDITIONAL IMAGING EVALUATION The stable oval focal asymmetry in the left breast resembles a cyst and is indeterminate. An ultrasound is recommended. This exam was interpreted at Station ID: [id number]. NOTE: For mammograms, a report in lay terms will be sent to the patient. Approximately 15% of breast malignancies will not be visualized mammographically. In the management of a palpable breast mass, a negative mammogram must not discourage biopsy of a clinically suspicious lesion. Electronically Signed By: Keven Mcclendon M.D., jr/lyssa:02/02/2021 10:20:11 ACR BI-RADS Category 0: Incomplete [id number]
--- NOTE | 2021-02-02 | DI.US.S_ITS ---
LIMITED ULTRASOUND OF LEFT BREAST: 02/02/2021 CLINICAL: Patient returns today to evaluate a focal asymmetry in the left breast. Comparison is made to exams dated: 02/02/2021 mammogram, 01/02/2021 mammogram, 01/05/2016 mammogram, 07/03/2012 mammogram, and 05/25/2011 mammogram - [facility]. Color flow and real-time ultrasound of the left breast 3-5 o'clock region were performed. Koch scale images of the real-time examination were reviewed. There is a benign 0.8 cm oval simple cyst in the left breast at 4 o'clock anterior depth 3 cm from the nipple. This oval simple cyst is anechoic with posterior acoustic enhancement. IMPRESSION: BENIGN There is no sonographic evidence of malignancy. The 0.8 cm oval simple cyst in the left breast is benign. Return to annual mammogram screening schedule is recommended. This exam was interpreted at Station ID: [id number]. Electronically Signed By: Keven Mcclendon M.D., jr/lyssa:02/02/2021 11:02:29 letter sent: Normal Exam Ultrasound BI-RADS: 2 Benign
== END ==
PROVIDERS: Family Provider Family Medicine; PCP Family Medicine; Referring Provider Family Medicine; Visit Provider Family Medicine
DX: R92.8 Other abnormal and inconclusive findings on diagnostic imaging of breast (principal); N60.02 Solitary cyst of left breast
CPT/HCPCS: 76642; 77065; G0279

== ENCOUNTER → 2022-01-14 08:33 | Outpatient (CLI) | payer OTHER, MEDICAID, SELFPAY ==
[2020-08-20 11:11] VITALS: BMI 33.9
== END ==
PROVIDERS: Family Provider Family Medicine; PCP Family Medicine; Visit Provider Physician Assistant Medical
DX: R82.90 Unspecified abnormal findings in urine (principal)
CPT/HCPCS: 81002; 87086

== ENCOUNTER → 2022-01-27 10:15 | Outpatient (CLI) | payer OTHER, MEDICAID, SELFPAY ==
[2020-08-20 11:11] VITALS: BMI 33.9
== END ==
PROVIDERS: Family Provider Family Medicine; PCP Physician Assistant; Referring Provider Physician Assistant; Visit Provider Physician Assistant
DX: M85.852 Other specified disorders of bone density and structure, left thigh (principal); Z13.820 Encounter for screening for osteoporosis; Z78.0 Asymptomatic menopausal state; Z90.710 Acquired absence of both cervix and uterus; G44.86 Cervicogenic headache; M47.812 Spondylosis without myelopathy or radiculopathy, cervical region; M50.223 Other cervical disc displacement at C6-C7 level
CPT/HCPCS: 77080; 99214

== ENCOUNTER → 2022-01-27 11:25 | Outpatient (CLI) | payer OTHER, MEDICAID, SELFPAY ==
[2020-08-20 11:11] VITALS: BMI 33.9
--- NOTE | 2022-01-27 | DI.MG.S_ITS ---
BILATERAL DIGITAL SCREENING MAMMOGRAM 3D/2D WITH CAD: 01/27/2022 CLINICAL: Routine screening. Family history of breast cancer. Comparison is made to exams dated: 02/02/2021 mammogram, 01/02/2021 mammogram, 01/05/2016 mammogram, and 07/03/2012 mammogram - [facility]. Both breasts are heterogeneously dense, which may obscure small masses (category c / 51-75% glandular tissue). Current study was also evaluated with a Computer Aided Detection (CAD) system. No significant masses, calcifications, or other findings are seen in either breast. There has been no significant interval change. IMPRESSION: NEGATIVE There is no mammographic evidence of malignancy. A 1 year screening mammogram is recommended. Based on the Tyrer Cuzick model (a risk assessment model) the patient's lifetime risk is 11.1% and her 10 year risk is 4.2%. According to the ACR, ACS, and NCCN guidelines, an annual breast MRI exam along with mammogram is recommended if the patient's lifetime risk is 20% or greater. This exam was interpreted at Station ID: [id number]. NOTE: For mammograms, a report in lay terms will be sent to the patient. Approximately 15% of breast malignancies will not be visualized mammographically. In the management of a palpable breast mass, a negative mammogram must not discourage biopsy of a clinically suspicious lesion. Electronically Signed By: Garret plaza/lyssa:01/27/2022 15:03:53 letter sent: Normal Exam ACR BI-RADS Category 1: Negative [id number]
== END ==
PROVIDERS: Family Provider Family Medicine; PCP Physician Assistant; Referring Provider Family Medicine; Visit Provider Family Medicine
DX: Z12.31 Encounter for screening mammogram for malignant neoplasm of breast (principal); Z80.3 Family history of malignant neoplasm of breast
CPT/HCPCS: 77063; 77067

== ENCOUNTER → 2022-07-14 09:33 | Outpatient (CLI) | payer OTHER, MEDICAID, SELFPAY ==
[2020-08-20 11:11] VITALS: BMI 33.9
[2022-07-14 20:31] LABS: Cortisol Random 1.36 ug/dL
== END ==
PROVIDERS: Internal Medicine Endocrinology, Diabetes & Metabolism; Family Provider Family Medicine; PCP Physician Assistant
DX: D35.02 Benign neoplasm of left adrenal gland (principal)
CPT/HCPCS: 82533

== ENCOUNTER → 2022-07-21 19:08 | Outpatient (CLI) | payer OTHER, SELFPAY ==
[2020-08-20 11:11] VITALS: BMI 33.9
--- NOTE | 2022-07-21 | DI.MRI.S_ITS ---
PROCEDURE: MR CERVICAL SPINE WO CON INDICATIONS: Radiculopathy, cervical region TECHNIQUE: Noncontrast sagittal T1 spin echo and T2 fast spin echo, sagittal STIR, foraminal oblique sagittal T2 fast spin echo, and axial gradient echo or T2 fast spin echo through the cervical spine. COMPARISON: None. FINDINGS: Image quality: Excellent. Alignment and Curvature: Trace anterolisthesis of C3 on C4 and of C4 on C5 and C5 on C6. Trace retrolisthesis of C6 on C7. Bone Marrow: Marrow demonstrates normal overall signal. Spinal Cord: Visualized spinal cord has normal size and signal. No cerebellar tonsillar herniation. Paraspinous Soft Tissues: No paravertebral masses. Prevertebral soft tissues are normal in thickness. C2-C3: No canal stenosis or foraminal stenosis. C3-C4: Prominent right facet hypertrophy. No canal stenosis. Mild right foraminal stenosis. C4-C5: Right facet hypertrophy. Disc bulge. No canal stenosis. [id number] right foraminal narrowing. C5-C6: Diffuse disc bulge mildly flattening the cord. AP diameter of the canal is 9.8 mm. Prominent left facet hypertrophy. Bilateral uncovertebral joint hypertrophy. Right foramen is patent. Moderate to severe left foraminal narrowing with a degree of left foraminal C6 nerve root impingement. C6-C7: Disc bulge. AP diameter of the canal is 9.1 mm. Bilateral uncovertebral joint hypertrophy. Left facet hypertrophy. Moderate to severe bilateral foraminal narrowing with a degree of bilateral foraminal C7 nerve root impingement. C7-T1: No canal stenosis or foraminal stenosis. IMPRESSION: 1. Multilevel facet arthropathy and uncovertebral joint hypertrophy. 2. Borderline canal stenosis at C5-C6 and mild canal stenosis at C6-C7. 3. Multilevel foraminal narrowing as described above. Findings include moderate to severe left foraminal narrowing at C5-C6 and moderate to severe bilateral foraminal narrowing at C6-C7. Dictated by: Darius Hawley M.D. on 07/22/2022 at 8:38 Approved by: Darius Hawley M.D. on 07/22/2022 at 8:52
== END ==
PROVIDERS: Family Provider Family Medicine; PCP Physician Assistant; Referring Provider Preventive Medicine Occupational Medicine; Visit Provider Preventive Medicine Occupational Medicine
DX: M47.22 Other spondylosis with radiculopathy, cervical region (principal); M48.02 Spinal stenosis, cervical region
CPT/HCPCS: 72141

== ENCOUNTER 2022-09-28 16:14 | Emergency (ER) | payer OTHER, SELFPAY ==
[2020-08-20 11:11] VITALS: BMI 33.9
[2022-09-28 16:24] VITALS: BP 174/84; PULSE 71; RESP 17; TEMP 36.7; O2SAT 97; BMI 33.9
[2022-09-28 17:09] LABS: Alanine Aminotransferase 60 IU/L (<35); Albumin 4.6 g/dL (3.5-5.0); Albumin Globulin Ratio 1.5 (1.0-2.8); Alkaline Phosphatase 35 U/L (38-126); Bilirubin Total 0.5 mg/dL (0.2-1.3); Blood Urea Nitrogen 22 mg/dL (7-17); Calcium 9.5 mg/dL (8.4-10.2); Carbon Dioxide 30 mmol/L (22-32); Chloride 102 mmol/L (98-107); Estimated Glomerular Filt Rate > 60 mL/min (>60); Glucose 131 mg/dL (70-100); Lipase 119 U/L (23-300); Sodium 138 mmol/L (137-145); Total Protein 7.6 g/dL (6.3-8.2)
[2022-09-28 17:10] LABS: Add Manual Diff / Slide Review NO; Basophils Absolute Auto 0 /uL (0-100); Basophils Percent Auto 0.4 % (0-2); Eosinophils Absolute Auto 100 /uL (0-450); Eosinophils Percent Auto 1.8 % (2-4); Hematocrit 41.3 % (36-46); Hemoglobin 13.8 g/dL (12.0-16.0); Lymphocytes Absolute Auto 3200 /uL (1100-4500); Lymphocytes Percent Auto 39.5 % (25-40); Mean Corpuscular HGB Conc 33.5 % (30-36); Mean Corpuscular Hemoglobin 28.4 PG (26-34); Mean Corpuscular Volume 84.6 fL (80-100); Monocytes Absolute Auto 600 /uL (0-900); Monocytes Percent Auto 7.5 % (3-14); Neutrophils Absolute Auto 4100 /uL (1500-7000); Neutrophils Percent Auto 50.8 % (50-75); Platelet Count 166 X10^3/uL (150-400); Red Blood Cell Count 4.88 X10^6/uL (4.0-5.2); Red Cell Distribution Width 13.7 % (11.6-14.8); White Blood Cell Count 8.1 X10^3/uL (4.5-11.0)
[2022-09-28 17:12] LABS: HEMOLYSIS 104 (0-50)
[2022-09-28 17:13] LABS: Potassium 4.3 mmol/L (3.4-5.1)
[2022-09-28 20:40] VITALS: O2SAT 91
[2022-09-28 20:42] VITALS: BP 167/84; PULSE 67; O2SAT 95
[2022-09-28 21:00] VITALS: PULSE 69; O2SAT 96
[2022-09-28 21:01] VITALS: BP 149/101; PULSE 67; O2SAT 96
--- NOTE | 2022-09-28 21:01 | DI.CT.S_ITS ---
PROCEDURE: CT ABDOMEN PELVIS W CON INDICATIONS: L sided abd pain TECHNIQUE: After the administration of IV contrast, axial sections were acquired from the lung bases to the pubic symphysis. Coronal and sagittal reformats were performed. For radiation dose reduction, the following was used: automated exposure control, adjustment of mA and/or kV according to patient size. COMPARISON: [facility], CT, CT ABDOMEN PELVIS W CON, 01/09/2021, 19:55. FINDINGS: Image quality: Excellent. Lung bases: Unremarkable. Heart: Heart is normal in size. ABDOMEN: Liver: There is diffuse hypoattenuation of the liver consistent with fatty infiltration. Gallbladder: Within normal limits without calcified gallstones. Biliary ducts: No biliary ductal dilatation. Pancreas: Unremarkable. Spleen: Normal in size. Adrenal Glands: There is thickening of the left adrenal redemonstrated. Kidneys and Ureters: No hydronephrosis. There is a small left renal cyst. Stomach and Bowel: Stomach, small bowel loops, and colon are normal in caliber and wall thickness. The appendix is normal. There is colonic diverticulosis without acute diverticulitis. Peritoneum: No abnormal intraperitoneal fluid. No free air. Ventral Wall: No hernia. Abdominal Nodes: No retroperitoneal or mesenteric adenopathy by size criteria. Vessels: Aorta and inferior vena cava are normal in size. PELVIS: Pelvic Organs: Unremarkable. Bladder: Unremarkable. Pelvic Nodes: No enlarged lymph nodes. Miscellaneous: No inguinal hernias are seen. Bones: Visualized osseous structures demonstrate no suspicious focal lesions. IMPRESSION: 1. No definite acute intra-abdominal abnormality. Specifically, there is colonic diverticulosis without acute diverticulitis. 2. Hepatic steatosis. Dictated by: Erik Beckwith M.D. on 09/28/2022 at 22:12 Approved by: Erik Beckwith M.D. on 09/28/2022 at 22:22
--- NOTE | 2022-09-28 21:01 | ED.GENADULT ---
HPI - General Adult General Chief complaint: Abdominal Pain Stated complaint: Kidney pains Time Seen by Provider: 09/28/22 20:58 Source: patient Mode of arrival: Family Vehicle History of Present Illness HPI narrative: Patient is a 57-year-old female who is here for evaluation of several weeks of left-sided abdominal/left flank discomfort. She states she has had a change in her bowel movements however they have been alternating between constipated and some diarrhea. No urinary symptoms. She has had a kidney stone in the past and she states this feels somewhat like this. She says she did have a urinalysis done prior to coming in by her primary doctor as referred to come to the emergency department for a CT scan. She denies any fevers. No skin rashes. No chest pain or shortness of breath. Related Data Previous Rx's Medication Instructions Recorded bupropion HCl 300 mg 24 hr tablet, See Rx Instructions .Route 05/18/22 extended release .COMPLEX #90 tabs gabapentin 300 mg capsule 300 mg PO BEDTIME pain #90 caps 05/19/22 celecoxib 200 mg capsule (Celebrex) 200 mg PO DAILY #30 caps 08/23/22 Allergies Allergy/AdvReac Type Severity Reaction Status Date / Time No Known Drug Allergies Allergy Verified 09/28/22 16:29 Review of Systems Constitutional Constitutional: Reports system reviewed and no additional complaints, except as documented Cardiovascular Cardiovascular: Reports system reviewed and no additional complaints, except as documented Respiratory Respiratory: Reports system reviewed and no additional complaints, except as documented Gastrointestinal Gastrointestinal: Reports system reviewed and no additional complaints, except as documented Genitourinary Genitourinary: Reports system reviewed and no additional complaints, except as documented Integumentary/Breasts Skin/Breast: Reports system reviewed and no additional complaints, except as documented Hematologic/Lymphatic On Anticoagulants: No Patient History Medical History Acute UTI Carpal tunnel syndrome Cervical root disorders, not elsewhere classified Cervicogenic headache Depression Facet arthropathy, cervical Headache Herniated nucleus pulposus, C6-7 Lipoma of back Obstruction, uropathy Strain of muscle and tendon of unspecified wall of thorax, subsequent encounter UTI (urinary tract infection) Vision disorder Surgical History (Updated 02/15/22 @ 21:47 by Anisha Torres) Anesthesia History of hysterectomy Kidney stones Social History household members: significant other Smoking Status: Former smoker Smoking Status: Former smoker alcohol intake frequency: holidays/special occasions only Substance Use Type: does not use Exam Initial Vital Signs Initial Vital Signs: Vital Signs Temperature 98.1 F 09/28/22 16:24 Pulse Rate 71 09/28/22 16:24 Respiratory Rate 17 09/28/22 16:24 Blood Pressure 174/84 H 09/28/22 16:24 Pulse Oximetry 97 09/28/22 16:24 Oxygen Delivery Method Room Air 09/28/22 16:24 Const General: cooperative, comfortable and No ill appearing HENMT Head: normal to inspection and normocephalic Resp Effort & Inspection: normal respiratory effort Auscultation: clear to auscultation bilaterally Cardio Rate: regular rate Rhythm: regular rhythm GI Inspection: normal to inspection and non-distended Palpation: soft and tender Back/Spine/Pelvis Back: No CVA tenderness Skin General: no rashes or lesions noted Neuro General: patient alert, patient awake and moves all extremities Extrem General: capillary refill normal Course Orders Ordered: ED Orders 09/28/22 21:01 CT abdomen pelvis w con Stat Discontinued Medications Ondansetron HCl (Ondansetron 4 Mg Odt) 4 mg SL NOW PRN PRN Reason: Nausea And Vomiting Ondansetron HCl (Ondansetron 4 Mg/2 Ml Inj) 4 mg IV NOW PRN PRN Reason: Nausea And Vomiting Ondansetron HCl (Ondansetron 4 Mg Odt) 4 mg PO NOW PRN PRN Reason: Nausea And Vomiting Ondansetron HCl (Ondansetron 4 Mg/2 Ml Inj) 4 mg IV NOW PRN PRN Reason: Nausea And Vomiting Vital Signs Vital signs: Vital Signs - 8 hr 09/28/22 20:40 09/28/22 20:42 09/28/22 20:42 Pulse Rate 67 Blood Pressure 167/84 H Pulse Oximetry 91 95 Oxygen Delivery Method 09/28/22 21:00 09/28/22 21:01 09/28/22 21:01 Pulse Rate 69 67 Blood Pressure 149/101 H Pulse Oximetry 96 96 Oxygen Delivery Method 09/28/22 22:38 09/28/22 22:38 Pulse Rate 62 Blood Pressure 132/79 Pulse Oximetry 97 Oxygen Delivery Method Room Air Medical Decision Making Lab Data Lab results reviewed: Yes I reviewed the patient's lab results. 09/28/22 16:45 09/28/22 16:45 Labs: Lab Results 09/28/22 09/28/22 Range/Units 16:45 16:45 WBC 8.1 (4.5-11.0) X10^3/uL RBC 4.88 (4.0-5.2) X10^6/uL Hgb 13.8 (12.0-16.0) g/dL Hct 41.3 (36-46) % MCV 84.6 (80-100) fL MCH 28.4 (26-34) PG MCHC 33.5 (30-36) % RDW 13.7 (11.6-14.8) % Plt Count 166 (150-400) X10^3/uL Neut % (Auto) 50.8 (50-75) % Lymph % (Auto) 39.5 (25-40) % [place] % (Auto) 7.5 (3-14) % Eos % (Auto) 1.8 L (2-4) % Baso % (Auto) 0.4 (0-2) % Neut # (Auto) 4100 (8380-1770) /uL Lymph # (Auto) 3200 (0347-1525) /uL Thurston # (Auto) 600 (0-900) /uL Eos # (Auto) 100 (0-450) /uL Baso # (Auto) 0 (0-100) /uL Sodium 138 (137-145) mmol/L Potassium 4.3 (3.4-5.1) mmol/L Chloride 102 (98-107) mmol/L Carbon Dioxide 30 (22-32) mmol/L BUN 22 H (7-17) mg/dL Creatinine 0.71 (0.52-1.04) mg/dL Estimated GFR > 60 (>60) mL/min BUN/Creatinine Ratio 31.0 H (6-22) Glucose 131 H (70-100) mg/dL Calcium 9.5 (8.4-10.2) mg/dL Total Bilirubin 0.5 (0.2-1.3) mg/dL AST TNP ALT 60 H (<35) IU/L Alkaline Phosphatase 35 L (38-126) U/L Total Protein 7.6 (6.3-8.2) g/dL Albumin 4.6 (3.5-5.0) g/dL Globulin 3.0 (1.7-4.1) g/dL Albumin/Globulin Ratio 1.5 (1.0-2.8) Lipase 119 (23-300) U/L Point of Care Testing Test Results Negative Urine Dip Bedside Urine Glucose Negative Bedside Urine Bilirubin - Negative Bedside Urine Ketone - Negative Urine Specific [place] 1.030 Bedside Urine Occult Blood - Negative Bedside Urine pH 6.0 Bedside Urine Protein - Negative Bedside Urine Urobilinogen - Negative Bedside Urine Nitrite - Negative Bedside Urine Leukocytes - Negative Esterase Point of care testing: Point of Care Testing Test Results Negative Urine Dip Bedside Urine Glucose Negative Bedside Urine Bilirubin - Negative Bedside Urine Ketone - Negative Urine Specific [place] 1.030 Bedside Urine Occult Blood - Negative Bedside Urine pH 6.0 Bedside Urine Protein - Negative Bedside Urine Urobilinogen - Negative Bedside Urine Nitrite - Negative Bedside Urine Leukocytes - Negative Esterase Imaging Data CT scan - abdomen/pelvis: Radiologist's Impression: PROCEDURE:? CT ABDOMEN PELVIS W CON ? INDICATIONS:? L sided abd pain ? TECHNIQUE:? After the administration of IV contrast, axial sections were acquired from the lung bases to the pubic symphysis.? Coronal and sagittal reformats were performed.? For radiation dose reduction, the following was used:? automated exposure control, adjustment of mA and/or kV according to patient size. ? COMPARISON:? [facility], CT, CT ABDOMEN PELVIS W CON, 01/09/2021, 19:55. ? FINDINGS:? Image quality:? Excellent.? ? Lung bases:? Unremarkable.? ? Heart:? Heart is normal in size. ? ? ABDOMEN: Liver:? There is diffuse hypoattenuation of the liver consistent with fatty infiltration. Gallbladder:? Within normal limits without calcified gallstones.? ? Biliary ducts:? No biliary ductal dilatation.? ? Pancreas:? Unremarkable.? ? Spleen:? Normal in size.? ? Adrenal Glands:? There is thickening of the left adrenal redemonstrated. Kidneys and Ureters:? No hydronephrosis.? There is a small left renal cyst.? ? Stomach and Bowel:? Stomach, small bowel loops, and colon are normal in caliber and wall thickness.? The appendix is normal.? There is colonic diverticulosis without acute diverticulitis. Peritoneum:? No abnormal intraperitoneal fluid.? No free air.? ? Ventral Wall: ? No hernia.? Abdominal Nodes:? No retroperitoneal or mesenteric adenopathy by size criteria.? Vessels:? Aorta and inferior vena cava are normal in size.? ? PELVIS: Pelvic Organs:? Unremarkable.? ? Bladder:? Unremarkable.? ? Pelvic Nodes: No enlarged lymph nodes.? Miscellaneous: No inguinal hernias are seen. ? ? ? Bones:? Visualized osseous structures demonstrate no suspicious focal lesions. ? IMPRESSION:? ? 1.? No definite acute intra-abdominal abnormality.? Specifically, there is colonic diverticulosis without acute diverticulitis. ? 2. Hepatic steatosis MDM Narrative Medical decision making narrative: Workup here in the emergency department is unremarkable. Labs unremarkable. CT scans unremarkable. Has a benign physical exam. Unsure the exact etiology. She is no skin rashes concerning for zoster. No surgical etiology found on workup. We did discuss the possibility of needing a referral to see gastroenterology. Patient is safe for discharge home and will have her contact her primary doctor for follow-up. She expressed understanding and agreement with plan. Discharge Plan Departure Patient Disposition: Home Clinical Impression: Abdominal pain Instructions: DI for Abdominal Pain-Adult Activity Restrictions/Additional Instructions: I recommend that you continue to take all of your medications as directed and contact your primary doctor for a follow-up. Return to the emergency department for new or worsening symptoms. Prescriptions: No Action bupropion HCl 300 mg tablet extended release 24 hr See Rx Instructions .ROUTE .COMPLEX Qty: 90 4RF Dose Instruction: TAKE ONE TABLET BY MOUTH EVERY DAY Rx Instructions: TAKE ONE TABLET BY MOUTH EVERY DAY gabapentin 300 mg capsule 300 mg PO BEDTIME Qty: 90 2RF celecoxib [Celebrex] 200 mg capsule 200 mg PO DAILY Qty: 30 2RF Referrals: Alma Romero PA-C [Primary Care Provider] - Stand Alone Forms: Patient Portal/API
[2022-09-28 22:38] VITALS: BP 132/79; PULSE 62; O2SAT 97
== END 2022-09-28 22:43 | disposition home or self-care (01) ==
PROVIDERS: Emergency Medicine; Emergency Provider Emergency Medicine; Family Provider Family Medicine; PCP Physician Assistant
DX: R10.9 Unspecified abdominal pain (principal)
CPT/HCPCS: 36415; 74177; 80053; 81003; 81025; 83690; 85025; 99283; 99284; Q9967

== ENCOUNTER → 2022-10-05 09:59 | Outpatient (CLI) | payer OTHER, MEDICAID, SELFPAY ==
[2020-08-20 11:11] VITALS: BMI 33.9
[2022-10-05 19:50] LABS: Basophils Absolute Auto 0 /uL (0-100); Basophils Percent Auto 0.6 % (0-2); Eosinophils Absolute Auto 100 /uL (0-450); Eosinophils Percent Auto 1.9 % (2-4); Hematocrit 42.1 % (36-46); Hemoglobin 14.2 g/dL (12.0-16.0); Lymphocytes Absolute Auto 2300 /uL (1100-4500); Lymphocytes Percent Auto 34.3 % (25-40); Mean Corpuscular HGB Conc 33.7 % (30-36); Mean Corpuscular Hemoglobin 28.5 PG (26-34); Mean Corpuscular Volume 84.6 fL (80-100); Monocytes Absolute Auto 400 /uL (0-900); Monocytes Percent Auto 6.3 % (3-14); Neutrophils Absolute Auto 3800 /uL (1500-7000); Neutrophils Percent Auto 56.9 % (50-75); Platelet Count 163 X10^3/uL (150-400); Red Blood Cell Count 4.98 X10^6/uL (4.0-5.2); Red Cell Distribution Width 13.5 % (11.6-14.8); White Blood Cell Count 6.7 X10^3/uL (4.5-11.0)
[2022-10-05 19:55] LABS: Alanine Aminotransferase 49 IU/L (<35); Albumin 4.3 g/dL (3.5-5.0); Albumin Globulin Ratio 1.7 (1.0-2.8); Alkaline Phosphatase 50 U/L (38-126); Aspartate Aminotransferase 32 IU/L (14-36); BUN Creatinine Ratio 24.3 (6-22); Bilirubin Total 0.4 mg/dL (0.2-1.3); Blood Urea Nitrogen 18 mg/dL (7-17); Calcium 9.6 mg/dL (8.4-10.2); Carbon Dioxide 28 mmol/L (22-32); Chloride 103 mmol/L (98-107); Estimated Glomerular Filt Rate > 60 mL/min (>60); Globulin 2.6 g/dL (1.7-4.1); Glucose 90 mg/dL (70-100); HEMOLYSIS < 15 (0-50); Potassium 4.5 mmol/L (3.4-5.1); Sodium 138 mmol/L (137-145); Total Protein 6.9 g/dL (6.3-8.2)
[2022-10-05 20:10] LABS: Add Manual Diff / Slide Review SLIDE REVIEW
[2022-10-05 20:11] LABS: Anisocytosis 1+; Microcytosis 1+; Ovalocytes 1+
== END ==
PROVIDERS: Family Provider Family Medicine; PCP Physician Assistant; Visit Provider Physician Assistant
DX: R03.0 Elevated blood-pressure reading, without diagnosis of hypertension (principal); R10.9 Unspecified abdominal pain
CPT/HCPCS: 80053; 81002; 85025

== ENCOUNTER → 2022-11-25 | Outpatient (CLI) | payer OTHER, MEDICAID, SELFPAY ==
[2020-08-20 11:11] VITALS: BMI 33.9
== END ==
PROVIDERS: Family Provider Family Medicine; PCP Physician Assistant; Referring Provider Family Medicine; Visit Provider Family Medicine
DX: Z23 Encounter for immunization (principal)
CPT/HCPCS: 90471; 90686

== ENCOUNTER → 2022-12-13 08:08 | Outpatient (CLI) | payer OTHER, MEDICAID, SELFPAY ==
[2020-08-20 11:11] VITALS: BMI 33.9
[2022-12-13 19:32] LABS: Add Manual Diff / Slide Review NO; Basophils Absolute Auto 0 /uL (0-100); Basophils Percent Auto 0.4 % (0-2); Eosinophils Absolute Auto 100 /uL (0-450); Eosinophils Percent Auto 2.3 % (2-4); Hematocrit 41.2 % (36-46); Hemoglobin 13.8 g/dL (12.0-16.0); Lymphocytes Absolute Auto 2800 /uL (1100-4500); Mean Corpuscular HGB Conc 33.5 % (30-36); Mean Corpuscular Hemoglobin 28.7 PG (26-34); Mean Corpuscular Volume 85.5 fL (80-100); Monocytes Absolute Auto 400 /uL (0-900); Monocytes Percent Auto 6.3 % (3-14); Neutrophils Absolute Auto 2800 /uL (1500-7000); Platelet Count 146 X10^3/uL (150-400); Red Blood Cell Count 4.82 X10^6/uL (4.0-5.2); Red Cell Distribution Width 13.7 % (11.6-14.8); White Blood Cell Count 6.2 X10^3/uL (4.5-11.0)
[2022-12-13 19:44] LABS: Alanine Aminotransferase 41 IU/L (<35); Albumin 4.4 g/dL (3.5-5.0); Albumin Globulin Ratio 1.8 (1.0-2.8); Alkaline Phosphatase 51 U/L (38-126); Aspartate Aminotransferase 28 IU/L (14-36); Bilirubin Total 0.3 mg/dL (0.2-1.3); Bilirubin Unconjugated 0.2 mg/dL (0.0-1.1); Globulin 2.5 g/dL (1.7-4.1); HEMOLYSIS < 15 (0-50); Total Protein 6.9 g/dL (6.3-8.2)
[2022-12-13 19:53] LABS: Alanine Aminotransferase 40 IU/L (<35); Albumin 4.1 g/dL (3.5-5.0); Albumin Globulin Ratio 1.5 (1.0-2.8); Alkaline Phosphatase 49 U/L (38-126); Aspartate Aminotransferase 28 IU/L (14-36); BUN Creatinine Ratio 27.4 (6-22); Bilirubin Total 0.4 mg/dL (0.2-1.3); Blood Urea Nitrogen 20 mg/dL (7-17); Calcium 9.5 mg/dL (8.4-10.2); Carbon Dioxide 27 mmol/L (22-32); Chloride 104 mmol/L (98-107); Estimated Glomerular Filt Rate > 60 mL/min (>60); Globulin 2.7 g/dL (1.7-4.1); Glucose 92 mg/dL (70-100); HEMOLYSIS 25 (0-50); Potassium 4.4 mmol/L (3.4-5.1); Sodium 140 mmol/L (137-145); Total Protein 6.8 g/dL (6.3-8.2)
[2022-12-13 20:33] LABS: Vitamin B12 777 pg/mL (239-931)
[2022-12-13 20:42] LABS: Hep C Virus Ab w/Reflex Quant NEGATIVE s/c (NEGATIVE)
[2022-12-13 21:30] LABS: TSH w/ Reflex to FT4 0.98 uIU/mL (0.47-4.68)
[2022-12-16 23:49] LABS: IgA 98 mg/dL (87-352); t-Transglutaminase IgA <2 U/mL (0-3)
== END ==
PROVIDERS: Family Provider Family Medicine; PCP Physician Assistant; Visit Provider Physician Assistant
DX: R74.01 Elevation of levels of liver transaminase levels (principal); R19.8 Other specified symptoms and signs involving the digestive system and abdomen; R10.9 Unspecified abdominal pain; R10.32 Left lower quadrant pain; R71.8 Other abnormality of red blood cells
CPT/HCPCS: 80053; 80076; 82607; 82784; 83516; 84443; 85025; 86803

== ENCOUNTER → 2022-12-23 07:58 | Outpatient (CLI) | payer OTHER, MEDICAID, SELFPAY ==
[2020-08-20 11:11] VITALS: BMI 33.9
[2022-12-23 20:04] LABS: Cholesterol 254 mg/dL (140-199); HDL Cholesterol 71 mg/dL (40-60); LDL Cholesterol Calculated 163 mg/dL (<100); Triglycerides 100 mg/dL (35-150)
== END ==
PROVIDERS: Family Provider Family Medicine; PCP Physician Assistant; Visit Provider Physician Assistant Medical
DX: Z13.6 Encounter for screening for cardiovascular disorders (principal); R73.9 Hyperglycemia, unspecified
CPT/HCPCS: 80061; 83036

== ENCOUNTER → 2023-05-05 12:24 | Outpatient (CLI) | payer OTHER, MEDICAID, SELFPAY ==
[2020-08-20 11:11] VITALS: BMI 33.9
--- NOTE | 2023-05-05 12:24 | DI.MG.S_ITS ---
BILATERAL DIGITAL SCREENING MAMMOGRAM 3D/2D WITH CAD: 05/05/2023 CLINICAL: Routine screening. Family history of breast cancer. Comparison is made to exams dated: 01/27/2022 mammogram, 02/02/2021 mammogram, 01/02/2021 mammogram, and 01/05/2016 mammogram - [facility]. Both breasts are heterogeneously dense, which may obscure small masses (category c / 51-75% glandular tissue). Current study was also evaluated with a Computer Aided Detection (CAD) system. No significant masses, calcifications, or other findings are seen in either breast. There has been no significant interval change. IMPRESSION: NEGATIVE There is no mammographic evidence of malignancy. A 1 year screening mammogram is recommended. Based on the Tyrer Cuzick model (a risk assessment model) the patient's lifetime risk is 10.9% and her 10 year risk is 4.3%. According to the ACR, ACS, and NCCN guidelines, an annual breast MRI exam along with mammogram is recommended if the patient's lifetime risk is 20% or greater. This exam was interpreted at Station ID: [id number]. NOTE: For mammograms, a report in lay terms will be sent to the patient. Approximately 15% of breast malignancies will not be visualized mammographically. In the management of a palpable breast mass, a negative mammogram must not discourage biopsy of a clinically suspicious lesion. Electronically Signed By: Mihir merino/lyssa:05/05/2023 13:49:28 letter sent: Normal Exam ACR BI-RADS Category 1: Negative [id number]
== END ==
PROVIDERS: Family Provider Family Medicine; PCP Physician Assistant; Referring Provider Physician Assistant; Visit Provider Physician Assistant
DX: Z12.31 Encounter for screening mammogram for malignant neoplasm of breast (principal); Z80.3 Family history of malignant neoplasm of breast; R92.333 Mammographic heterogeneous density, bilateral breasts
CPT/HCPCS: 77063; 77067

== ENCOUNTER → 2023-06-01 09:01 | Outpatient (CLI) | payer OTHER, MEDICAID, SELFPAY ==
[2020-08-20 11:11] VITALS: BMI 33.9
== END ==
PROVIDERS: Family Provider Family Medicine; PCP Physician Assistant; Referring Provider Nurse Practitioner Adult Health; Visit Provider Nurse Practitioner Adult Health
DX: R31.9 Hematuria, unspecified (principal); R10.32 Left lower quadrant pain
CPT/HCPCS: 87086

== ENCOUNTER → 2023-06-02 15:36 | Outpatient (CLI) | payer OTHER, MEDICAID, SELFPAY ==
[2020-08-20 11:11] VITALS: BMI 33.9
[2023-06-02 19:24] LABS: Bacteria Urine Occasional (0-1); Culture Indicated Urine Cult Not Indicated; RBC Urine 0-1/HPF (0-5/HPF); Squamous Epithelial Cell Urine 1-5 /HPF (0-5/HPF); Urine Volume 10mL (spun); WBC Urine 0-1/HPF (0-5/HPF)
== END ==
PROVIDERS: Family Provider Family Medicine; PCP Physician Assistant; Visit Provider Physician Assistant Medical
DX: N39.0 Urinary tract infection, site not specified (principal); N20.1 Calculus of ureter
CPT/HCPCS: 81015

== ENCOUNTER → 2023-06-20 12:13 | Outpatient (CLI) | payer OTHER, MEDICAID, SELFPAY ==
[2020-08-20 11:11] VITALS: BMI 33.9
--- NOTE | 2023-06-20 12:14 | DI.CT.S_ITS ---
PROCEDURE: CT KIDNEY URETER BLADDER (KUB) INDICATIONS: hematuria/LLQ pain TECHNIQUE: Axial sections were acquired from the lung bases to the pubic symphysis. Coronal and sagittal reformats were performed. For radiation dose reduction, the following was used: automated exposure control, adjustment of mA and/or kV according to patient size. COMPARISON: None. FINDINGS: Image quality: Diagnostic. Evaluation of the visceral organs is limited due to the lack of intravenous contrast. Lower Chest: No suspicious pulmonary nodule or consolidation. Bilateral lower lobe atelectasis. URINARY: Right Kidney: No stones or hydronephrosis. Right Ureter: No hydroureter. Left Kidney: Nonobstructive nephrolith in the left lower pole measuring 4 mm (2/39). Left Ureter: No hydroureter. Bladder: Circumferential bladder wall thickening. No stones. ABDOMEN: Liver: No contour-deforming solid mass. Diffuse hypoattenuation of the liver with areas of sparing in the gallbladder fossa. Gallbladder: No radiopaque gallstones or wall thickening. Biliary ducts: No biliary dilation. Pancreas: No ductal dilation. Spleen: Size is within normal limits. Adrenal Glands: No adrenal nodules. Mild nodular thickening of the left adrenal gland. Stomach and Bowel: No hiatal hernia. Stomach appears grossly normal, accounting for under distention. Small and large bowel is normal in caliber, without obstruction. Normal appendix (2/58). Colonic diverticulosis, without diverticulitis. Peritoneum: No abnormal intraperitoneal fluid. No free air. Ventral Wall: No hernia. Abdominal Nodes: No enlarged retroperitoneal or mesenteric lymph nodes. Vessels: Aorta and inferior vena cava are normal in size. Minimal calcification of the abdominal aorta and iliac vasculature PELVIS: Pelvic Organs: Fluid versus thickening in the endometrial complex (2/78). Pelvic Nodes: Unremarkable. Miscellaneous: No inguinal hernias are seen. Bones: No acute fracture. No aggressive appearing lytic or blastic osseous lesion. Minimal multilevel degenerative changes of the spine. IMPRESSION: Evaluation of the visceral organs is limited due to the lack of intravenous contrast. 1. Nonobstructive nephrolith in the left lower pole measuring 4 mm. 2. Diffuse hypoattenuation of the liver suggestive of steatosis with areas of sparing in the gallbladder fossa. 3. Colonic diverticulosis, without diverticulitis. Dictated by: Ann-Marie Garrett M.D. on 06/20/2023 at 13:28 Approved by: Ann-Marie Garrett M.D. on 06/20/2023 at 14:27
== END ==
PROVIDERS: Family Provider Family Medicine; PCP Physician Assistant; Referring Provider Physician Assistant Medical; Visit Provider Physician Assistant Medical
DX: R10.32 Left lower quadrant pain (principal); N20.0 Calculus of kidney; K57.90 Diverticulosis of intestine, part unspecified, without perforation or abscess without bleeding; N20.1 Calculus of ureter; J98.11 Atelectasis; I70.0 Atherosclerosis of aorta; I70.8 Atherosclerosis of other arteries; R10.9 Unspecified abdominal pain; R31.9 Hematuria, unspecified
CPT/HCPCS: 74176

== ENCOUNTER → 2023-10-26 09:35 | Outpatient (CLI) | payer OTHER, MEDICAID, SELFPAY ==
[2020-08-20 11:11] VITALS: BMI 33.9
[2023-10-28 10:40] LABS: Fecal Immunochemical Test Negative (Negative)
== END ==
PROVIDERS: Family Provider Family Medicine; PCP Physician Assistant; Visit Provider Physician Assistant
DX: Z12.11 Encounter for screening for malignant neoplasm of colon (principal)
CPT/HCPCS: 82274

== ENCOUNTER → 2023-12-27 13:18 | Outpatient (CLI) | payer OTHER, MEDICAID, SELFPAY ==
[2020-08-20 11:11] VITALS: BMI 33.9
[2023-12-27 14:09] LABS: Lipase 157 U/L (23-300)
== END ==
PROVIDERS: Family Provider Family Medicine; PCP Physician Assistant; Referring Provider Physician Assistant; Visit Provider Physician Assistant
DX: R10.9 Unspecified abdominal pain (principal); K59.00 Constipation, unspecified; R31.9 Hematuria, unspecified
CPT/HCPCS: 36415; 83690

== ENCOUNTER → 2024-01-09 09:35 | Outpatient (CLI) | payer OTHER, MEDICAID, SELFPAY ==
[2020-08-20 11:11] VITALS: BMI 33.9
[2024-01-09 19:17] LABS: Add Manual Diff / Slide Review NO; Basophils Absolute Auto 0 /uL (0-100); Basophils Percent Auto 0.6 % (0-2); Eosinophils Absolute Auto 100 /uL (0-450); Eosinophils Percent Auto 2.4 % (2-4); Hematocrit 41.7 % (36-46); Lymphocytes Absolute Auto 2000 /uL (1100-4500); Lymphocytes Percent Auto 36.4 % (25-40); Mean Corpuscular HGB Conc 33.6 % (30-36); Mean Corpuscular Hemoglobin 28.8 PG (26-34); Mean Corpuscular Volume 85.7 fL (80-100); Monocytes Absolute Auto 400 /uL (0-900); Monocytes Percent Auto 7.2 % (3-14); Neutrophils Absolute Auto 2900 /uL (1500-7000); Neutrophils Percent Auto 53.4 % (50-75); Platelet Count 146 X10^3/uL (150-400); Red Blood Cell Count 4.86 X10^6/uL (4.0-5.2); Red Cell Distribution Width 14.3 % (11.6-14.8); White Blood Cell Count 5.4 X10^3/uL (4.5-11.0)
[2024-01-09 19:22] LABS: Hemoglobin A1C% w Est Avg Glu 5.8 % (4.0-6.0)
[2024-01-09 19:27] LABS: Alanine Aminotransferase 45 IU/L (<35); Albumin 4.1 g/dL (3.5-5.0); Alkaline Phosphatase 65 U/L (38-126); Aspartate Aminotransferase 36 IU/L (14-36); BUN Creatinine Ratio 21.9 (6-22); Bilirubin Total 0.6 mg/dL (0.2-1.3); Blood Urea Nitrogen 16 mg/dL (7-17); Calcium 9.4 mg/dL (8.4-10.2); Carbon Dioxide 26 mmol/L (22-32); Chloride 108 mmol/L (98-107); Estimated Glomerular Filt Rate > 60 mL/min (>60); Globulin 2.5 g/dL (1.7-4.1); Glucose 95 mg/dL (80-110); HEMOLYSIS < 15 (0-50); Potassium 4.2 mmol/L (3.4-5.1); Sodium 139 mmol/L (137-145); Total Protein 6.6 g/dL (6.3-8.2); Uric Acid 4.8 mg/dL (2.5-6.2)
[2024-01-09 19:28] LABS: Albumin Globulin Ratio 1.6 (1.0-2.8)
[2024-01-09 19:34] LABS: Cholesterol 282 mg/dL (140-199); HDL Cholesterol 78 mg/dL (40-60); LDL Cholesterol Calculated 187 mg/dL (<100); Triglycerides 86 mg/dL (35-150)
[2024-01-09 19:54] LABS: Microalbumin Urine Random 3.2 mg/dL (0-1.6)
[2024-01-09 20:07] LABS: TSH w/ Reflex to FT4 0.76 uIU/mL (0.47-4.68)
[2024-01-09 20:09] LABS: Creatinine Urine Random 438.38 mg/dL
== END ==
PROVIDERS: Physician Assistant Medical; Family Provider Family Medicine; PCP Physician Assistant; Visit Provider Physician Assistant
DX: R00.2 Palpitations (principal); R73.9 Hyperglycemia, unspecified; R74.01 Elevation of levels of liver transaminase levels; E78.00 Pure hypercholesterolemia, unspecified; R31.9 Hematuria, unspecified; N20.1 Calculus of ureter; N39.0 Urinary tract infection, site not specified; R10.9 Unspecified abdominal pain; R10.32 Left lower quadrant pain; I10 Essential (primary) hypertension; R71.8 Other abnormality of red blood cells
CPT/HCPCS: 80053; 80061; 82043; 82570; 83036; 84443; 84550; 85025

== ENCOUNTER 2024-04-23 08:00 | Day surgery (SDC) | payer OTHER, SELFPAY ==
[2020-08-20 11:11] VITALS: BMI 33.9
--- NOTE | 2024-04-23 | PATH_ITS ---
[facility] Accession Number: [id number] No. of containers..01 Tissue . 01 Material submitted: . colon - SIGMOID COLON POLYP . 01 Diagnosis: SIGMOID COLON POLYP: Hyperplastic polyp. MRV 04/25/2024 1152 Local . 01 Electronically signed: . Rebecca Diamond MD, Pathologist NPI- [id number] . 01 Gross description: . SIGMOID COLON POLYP: Received in formalin is 1 fragment(s) of rojas, soft tissue measuring 1.0 x 0.4 x 0.3 cm submitted entirely in 1 cassette(s) /KELSEY 04/24/20242001 Local . 01 Pathologist provided ICD-10: D12.5 . 01 CPT . 544711 Specimen Comment: A courtesy copy of this report has been sent to [facility] Pathology Performed at: [address] [id number] MD Erik Hatch MD Phone: [phone]
[2024-04-23] MEDS: LACTATED RINGERS 1,000 ML 42 ML IV (09:06)
[2024-04-23 09:19] VITALS: BP 128/80; PULSE 63; RESP 16; TEMP 36.3; O2SAT 98
--- NOTE | 2024-04-23 10:13 | P.HP_ITS ---
History of Present Illness History of Present Illness Date Patient Seen: 04/23/24 Time Patient Seen: 10:13 Chief complaint: Colonoscopy Narrative: 58-year-old white female presents for follow-up colonoscopy. Last colonoscopy was about 10 years ago and no polyps were reported. [facility] Medical History Menopausal and female climacteric states Vision disorder Carpal tunnel syndrome Cervicogenic headache Strain of muscle and tendon of unspecified wall of thorax, subsequent encounter Cervical root disorders, not elsewhere classified Facet arthropathy, cervical Herniated nucleus pulposus, C6-7 UTI (urinary tract infection) Acute UTI Obstruction, uropathy Depression Lipoma of back Headache Surgical History Anesthesia History of hysterectomy Kidney stones Social History household members: significant other Smoking Status: Former smoker Meds Home Medications and Allergies Home Medications Medication Instructions Recorded Confirmed Type gabapentin 300 mg capsule 300 mg PO BEDTIME pain #90 caps 05/19/22 04/23/24 Rx bupropion HCl 150 mg 24 hr tablet, 150 mg PO QAM #90 tabs 10/19/23 04/23/24 Rx extended release meloxicam 7.5 mg tablet 7.5 mg PO BID 10/19/23 04/23/24 History estradiol 0.0375 mg/24 hr 1 patch transdermal 2XW #16 ea 11/23/23 04/23/24 Rx semiweekly transdermal patch losartan 25 mg tablet 25 mg PO DAILY #30 tabs 01/09/24 04/23/24 Rx varenicline tartrate 1 mg tablet 1 mg PO BID #56 tabs 01/09/24 04/23/24 Rx (Chantix) bupropion HCl 300 mg 24 hr tablet, 300 mg PO DAILY #90 tabs 04/20/24 04/23/24 Rx extended release Allergies Allergy/AdvReac Type Severity Reaction Status Date / Time fluticasone [From Flonase] AdvReac Mild Headache Verified 04/23/24 09:13 Review of Systems Review of Systems ROS: Yes All systems reviewed with the patient and are negative except as otherwise documented Exam Vital Signs (past 8 hours): - 04/23/24 09:19 Temperature 97.3 F L Pulse Rate 63 Respiratory Rate 16 Blood Pressure 128/80 Pulse Oximetry 98 Narrative Exam Narrative: Gen: NAD, sitting comfortably in bed, appears well HEENT: Sclera are anicteric, head is normocephalic and atraumatic, trachea is midline. CV: RRR, no JVD Resp: clear to auscultation bilaterally, equal chest wall movement bilaterally Abd: soft, nontender, normoactive bowel sounds Ext: no edema, full range of motion Neuro: Cranial nerves II-XII grossly intact, no focal deficits Skin: No erythema or ecchymosis Assessment & Plan Assessment and plan (1) Colon cancer screening: Status: Acute Assessment & Plan narrative: Patient presents for colonoscopy Risks, benefits, alternatives to colonoscopy explained, including but not limited to bowel perforation or other serious complication requiring surgery at less than 1 in 5000 colonoscopies, abdominal pain, cramping or bleeding and less than 1% of colonoscopies, and the chances that we find a diagnosis that would require further intervention of about 2%. Patient agrees to proceed. Time-Based Coding :: [TOTAL MINUTES] spent with patient and on the chart (including review of chart, obtaining history, exam, reviewing outside data, placing orders, documenting exam and treatment plan, and counseling patient) on [DATE]. [employer]EE [employer] Document charge(s): No
--- NOTE | 2024-04-23 10:34 | PM.OP.COLON ---
Operative Date/Time/Diagnoses Date of procedure: 04/23/24 Time of procedure: 10:34 Pre-op diagnosis: Colon screening Post-op diagnosis: same (Sigmoid polyp) Procedure & Clinicians Study performed: Colonoscopy with cold snare polypectomy Same procedure as scheduled: Yes Indications: Colon screening Surgeon: Dat Chiu Procedure Notes SCOAP/Timeout: Performed Procedure in detail: Time-out was performed. Mac was induced. Patient was placed in left lateral decubitus position. The perineum was inspected without any gross abnormality. Lubricated pediatric colonoscope was inserted and advanced to the cecum. The terminal ileum was intubated. The colonoscope was withdrawn slowly inspecting the circumference of the colon. A small, benign-appearing polyp was noted in the sigmoid colon. This was removed completely with cold snare polypectomy and retrieved. Very small polyps may have been missed, prep quality was adequate. Retroflexed view of the rectum showed small, non prolapsed nonbleeding internal hemorrhoids. The scope was withdrawn the patient was taken to PACU in good condition. Scope withdrawal time: 9 Findings: polyp(s) Specimen(s): other (Sigmoid polyp) Complications: none Post-procedure Recommendations: Colonoscopy in 5 years (Next colonoscopy in 7 years) Plan for aftercare: home Follow up: as needed Disposition: PACU
[2024-04-23 10:38] VITALS: BP 114/74; PULSE 67; RESP 20; TEMP 36.1; O2SAT 98
[2024-04-23 10:41] VITALS: BP 127/73; PULSE 64; RESP 19; O2SAT 99
[2024-04-23 10:46] VITALS: BP 106/60; PULSE 62; RESP 15; O2SAT 98
[2024-04-23 10:55] VITALS: BP 103/63; PULSE 65; RESP 16; O2SAT 98
== END 2024-04-23 11:03 | disposition home or self-care (01) ==
PROVIDERS: Family Provider Family Medicine; PCP Physician Assistant; Referring Provider Surgery; Visit Provider Surgery
PROC: 0DJD8ZZ Inspection of Lower Intestinal Tract, Via Natural or Artificial Opening Endoscopic (ICD-10-PCS; CPT 45378; principal; 2024-04-23 09:45)
DX: Z12.11 Encounter for screening for malignant neoplasm of colon (principal); K64.8 Other hemorrhoids; D12.5 Benign neoplasm of sigmoid colon
CPT/HCPCS: 45385; J2704

== ENCOUNTER → 2024-06-14 12:47 | Outpatient (CLI) | payer OTHER, SELFPAY ==
[2020-08-20 11:11] VITALS: BMI 33.9
== END ==
LOC: LAB 12:48
PROVIDERS: PCP Physician Assistant; Visit Provider Physician Assistant Medical
DX: R10.9 Unspecified abdominal pain (principal)
CPT/HCPCS: 87086

== ENCOUNTER 2024-06-16 10:38 | Emergency (ER) | payer OTHER, SELFPAY ==
[2020-08-20 11:11] VITALS: BMI 33.9
[2024-06-16 10:44] VITALS: BP 146/78; PULSE 64; RESP 16; TEMP 36.7; O2SAT 96; BMI 37.1
[2024-06-16 11:22] LABS: Alanine Aminotransferase 54 IU/L (<35); Albumin 4.5 g/dL (3.5-5.0); Albumin Globulin Ratio 1.7 (1.0-2.8); Alkaline Phosphatase 59 U/L (38-126); Aspartate Aminotransferase 45 IU/L (14-36); BUN Creatinine Ratio 25.9 (6-22); Bilirubin Total 0.5 mg/dL (0.2-1.3); Blood Urea Nitrogen 21 mg/dL (7-17); Calcium 9.8 mg/dL (8.4-10.2); Carbon Dioxide 29 mmol/L (22-32); Chloride 104 mmol/L (98-107); Estimated Glomerular Filt Rate > 60 mL/min (>60); Globulin 2.6 g/dL (1.7-4.1); Glucose 113 mg/dL (70-99); HEMOLYSIS 27 (0-50); Lipase 129 U/L (23-300); Potassium 4.2 mmol/L (3.4-5.1); Sodium 139 mmol/L (137-145); Total Protein 7.1 g/dL (6.3-8.2)
[2024-06-16 11:27] LABS: Add Manual Diff / Slide Review NO; Basophils Absolute Auto 0 /uL (0-100); Basophils Percent Auto 0.6 % (0-2); Eosinophils Absolute Auto 200 /uL (0-450); Eosinophils Percent Auto 2.6 % (2-4); Hematocrit 42.1 % (36-46); Hemoglobin 14.3 g/dL (12.0-16.0); Lymphocytes Absolute Auto 2500 /uL (1100-4500); Lymphocytes Percent Auto 36.2 % (25-40); Mean Corpuscular Hemoglobin 29.2 PG (26-34); Monocytes Absolute Auto 400 /uL (0-900); Monocytes Percent Auto 6.1 % (3-14); Neutrophils Absolute Auto 3700 /uL (1500-7000); Neutrophils Percent Auto 54.5 % (50-75); Platelet Count 151 X10^3/uL (150-400); White Blood Cell Count 6.8 X10^3/uL (4.5-11.0)
[2024-06-16 11:30] LABS: Urine Volume 10mL (spun)
[2024-06-16 11:31] LABS: Bacteria Urine None Seen; Culture Indicated Urine Cult Not Indicated; RBC Urine 5-10/HPF (0-5/HPF); Squamous Epithelial Cell Urine 5-10 /HPF (0-5/HPF); WBC Urine 1-5/HPF (0-5/HPF)
--- NOTE | 2024-06-16 11:52 | ED.ABDPAIN ---
HPI - Abdominal Pain General Chief Complaint: Abdominal Pain Stated Complaint: R side pain, blood in urine Time Seen by Provider: 06/16/24 11:51 Source: patient, RN notes reviewed and old records reviewed Mode of arrival: Family Vehicle Limitations: no limitations History of Present Illness HPI narrative: 58-year-old female comes in with complaint of 6 days of right flank pain that is started to move anteriorly. Started gradually he was going to little bit worse over time has been fairly constant. Occasionally gets little nauseated with it has not had any vomiting. Denies any fevers. No chest pain or shortness of breath. She notes sometimes at night she gets palpitations but has been going on for some time. States she has been a little bit constipated but had a bowel movement yesterday, no black or bloody stools. No dysuria urgency or frequency that she noted urine seemed a little bit darker this morning which she states she had some wine last night. Patient has a history of kidney stone states it feels fairly similar. Was seen 2 days ago had a KUB x-ray and a shot of Toradol which she states was minimally helpful. Because of persistent symptoms she presents for evaluation. Patient is on meloxicam and gabapentin daily for chronic neck pain. She was had prior hysterectomy. She has had intervention for stones twice before. Denies any medication allergies. Former tobacco, occasional alcohol, uses marijuana no other recreational drugs. Lives on [facility]. Related Data Home Medications Medication Instructions Recorded Confirmed meloxicam 7.5 mg tablet 7.5 mg PO BID 10/19/23 05/09/24 Previous Rx's Medication Instructions Recorded bupropion HCl 150 mg 24 hr tablet, 150 mg PO QAM #90 tabs 10/19/23 extended release estradiol 0.0375 mg/24 hr 1 patch transdermal 2XW #16 ea 11/23/23 semiweekly transdermal patch bupropion HCl 300 mg 24 hr tablet, 300 mg PO DAILY #90 tabs 04/20/24 extended release gabapentin 300 mg capsule 300 mg PO BEDTIME pain #90 caps 05/09/24 losartan 25 mg tablet 25 mg PO DAILY #90 tabs 05/09/24 varenicline tartrate 1 mg tablet 1 mg PO BID #56 tabs 05/09/24 (Chantix) tirzepatide 2.5 mg/0.5 mL 2.5 mg (0.5 mL) SUBCUT QWEEK #2 mL 05/24/24 subcutaneous pen injector ciprofloxacin HCl 500 mg tablet 500 mg PO BID #20 tabs 06/16/24 ondansetron 4 mg disintegrating 4 mg PO Q6H PRN nausea and 06/16/24 tablet vomiting #7 tabs tamsulosin 0.4 mg capsule (Flomax) 0.8 mg (2 x 0.4 mg) PO DAILY 7 06/16/24 days #14 caps tramadol 50 mg tablet 50 mg PO Q6H PRN pain #10 tabs 06/16/24 Allergies Allergy/AdvReac Type Severity Reaction Status Date / Time fluticasone [From Flonase] AdvReac Mild Headache Verified 05/09/24 08:09 Review of Systems Review of Systems ROS Unobtainable: All systems reviewed & are unremarkable except as noted in HPI and below Patient History Medical History Menopausal and female climacteric states Vision disorder Carpal tunnel syndrome Cervicogenic headache Strain of muscle and tendon of unspecified wall of thorax, subsequent encounter Cervical root disorders, not elsewhere classified Facet arthropathy, cervical Herniated nucleus pulposus, C6-7 UTI (urinary tract infection) Acute UTI Obstruction, uropathy Depression Lipoma of back Headache Surgical History Anesthesia History of hysterectomy Kidney stones Social History household members: significant other alcohol intake frequency: holidays/special occasions only Exam Narrative Exam Narrative: GENERAL: Alert and oriented x three, female in mild distress HEENT: Head normocephalic, atraumatic, EOMI, pupils reactive, face symmetric, moist mucous membranes NECK: Supple, full range of motion CARDIOVASCULAR: Regular rate and rhythm without murmurs, rubs or gallops. RESPIRATORY: Breath sounds equal bilaterally, no wheezes rales or rhonchi. ABDOMEN: Soft, nontender. Normoactive bowel sounds all 4 quadrants. No guarding or rebound, rigidity, no mass : Mild right CVA tenderness, no rash or skin changes. EXTREMITIES: Normal range of motion, no clubbing or edema. Neurovascularly intact NEUROLOGICAL: Cranial nerves II through XII grossly intact. Moving all extremities SKIN: Warm, dry, no petechiae, no rashes or lesions. Initial Vital Signs Initial Vital Signs: Vital Signs Temperature 98.0 F 06/16/24 10:44 Pulse Rate 64 06/16/24 10:44 Respiratory Rate 16 06/16/24 10:44 Blood Pressure 146/78 H 06/16/24 10:44 Pulse Oximetry 96 06/16/24 10:44 Oxygen Delivery Method Room Air 06/16/24 10:44 Course Orders Ordered: ED Orders 06/16/24 10:50 Urine Microscopic Stat 06/16/24 11:00 Complete Blood Count AUTO DIFF Stat Comprehensive Metabolic Panel Stat Lipase Stat 06/16/24 12:04 CT kidney ureter bladder (KUB) Stat EKG-12 Lead Stat Discontinued Medications Ciprofloxacin (Ciprofloxacin 250 Mg Tablet) 500 mg PO NOW ONE Stop: 06/16/24 13:48 Last Admin: 06/16/24 13:55 Dose: 500 mg Documented By: SUPRIYA Lidocaine HCl 8 ml/ Sodium (Chloride) 58 mls @ 348 mls/hr IV NOW ONE Stop: 06/16/24 12:06 Last Infusion: 06/16/24 12:48 Dose: Infused Documented By: Admin: 06/16/24 12:33 Dose: 348 mls/hr Documented By: Ketorolac Tromethamine (Ketorolac 30 Mg/Ml Vial) 15 mg IV NOW ONE Stop: 06/16/24 13:48 Last Admin: 06/16/24 13:55 Dose: 15 mg Documented By: SUPRIYA Ondansetron HCl (Ondansetron 4 Mg/2 Ml Inj) 4 mg IV NOW PRN PRN Reason: Nausea And Vomiting Ondansetron HCl (Ondansetron 4 Mg Odt) 4 mg PO NOW PRN PRN Reason: Nausea And Vomiting Vital Signs Vital signs: Vital Signs - 8 hr 06/16/24 10:44 06/16/24 12:36 06/16/24 12:37 Temperature 98.0 F Pulse Rate 64 59 L 59 L Respiratory Rate 16 16 Blood Pressure 146/78 H 139/80 139/80 Pulse Oximetry 96 99 96 Oxygen Delivery Method Room Air Room Air 06/16/24 13:09 06/16/24 13:10 06/16/24 14:04 Temperature Pulse Rate 59 L 60 59 L Respiratory Rate 16 14 16 Blood Pressure 159/77 H 159/77 H 150/85 H Pulse Oximetry 97 97 98 Oxygen Delivery Method Room Air Room Air MDM - Abdominal Pain Lab Data 06/16/24 11:00 06/16/24 11:00 Labs: Lab Results 06/16/24 06/16/24 Range/Units 10:50 11:00 WBC 6.8 (4.5-11.0) X10^3/uL RBC 4.90 (4.0-5.2) X10^6/uL Hgb 14.3 (12.0-16.0) g/dL Hct 42.1 (36-46) % MCV 86.0 (80-100) fL MCH 29.2 (26-34) PG MCHC 34.0 (30-36) % RDW 14.0 (11.6-14.8) % Plt Count 151 (150-400) X10^3/uL Neut % (Auto) 54.5 (50-75) % Lymph % (Auto) 36.2 (25-40) % [place] % (Auto) 6.1 (3-14) % Eos % (Auto) 2.6 (2-4) % Baso % (Auto) 0.6 (0-2) % Neut # (Auto) 3700 (1096-5465) /uL Lymph # (Auto) 2500 (1164-0946) /uL [place] # (Auto) 400 (0-900) /uL Eos # (Auto) 200 (0-450) /uL Baso # (Auto) 0 (0-100) /uL Sodium 139 (137-145) mmol/L Potassium 4.2 (3.4-5.1) mmol/L Chloride 104 (98-107) mmol/L Carbon Dioxide 29 (22-32) mmol/L BUN 21 H (7-17) mg/dL Creatinine 0.81 (0.52-1.04) mg/dL Estimated GFR > 60 (>60) mL/min BUN/Creatinine Ratio 25.9 H (6-22) Glucose 113 H (70-99) mg/dL Calcium 9.8 (8.4-10.2) mg/dL Total Bilirubin 0.5 (0.2-1.3) mg/dL AST 45 H (14-36) IU/L ALT 54 H (<35) IU/L Alkaline Phosphatase 59 (38-126) U/L Total Protein 7.1 (6.3-8.2) g/dL Albumin 4.5 (3.5-5.0) g/dL Globulin 2.6 (1.7-4.1) g/dL Albumin/Globulin Ratio 1.7 (1.0-2.8) Lipase 129 (23-300) U/L Urine RBC 5-10/hpf H (0-5/HPF) Urine WBC 1-5/hpf (0-5/HPF) Ur Squamous Epith Cells 5-10 /hpf H (0-5/HPF) Urine Bacteria None seen (None) Ur Culture Indicated? Cult not indicated Vol Urine Centrifuged 10ml (spun) Point of care testing: Urine Dip Bedside Urine Glucose Negative Bedside Urine Bilirubin - Negative Bedside Urine Ketone - Negative Urine Specific [place] 1.020 Bedside Urine Occult Blood +/- Bedside Urine pH 6.0 Bedside Urine Protein - Negative Bedside Urine Urobilinogen - Negative Bedside Urine Nitrite - Negative Bedside Urine Leukocytes - Negative Esterase ECG Data Attestation: I personally reviewed and interpreted this ECG as follows: Interpretation: Sinus rhythm rate of 63 TX 166 QRS 88 QTC of 405, no acute ST elevation depression. MDM Narrative Medical decision making narrative: Labs show normal white count, hemoglobin and platelets, BUN 21 creatinine 0.81 electrolytes are otherwise appropriate glucose is 113 he was states 45 ALT is 54, bilirubin is 0.5 lipase is 129 patient's ALT was 45 in December of 2023 LFTs are otherwise normal at that time. Point of care urine shows blood, 5-10 RBCs 1-5 WBCs had 10 squamous no bacteria. On 06/14/2024 patient had KUB x-ray which was negative for acute change. Patient was seen in outpatient clinic for lower back pain possible kidney stone that has been present for 3 days at that time[address] CT abdomen pelvis without contrast shows shows left proximal ureteral stone measuring 5 mm, thickened bladder wall and exaggerated from underdistention correlate with UA, uterine remnant versus enlarged vaginal cuff similar to comparison. Consider nonemergent ultrasound. Patient was given lidocaine IV had some improvement. She was still has some discomfort. Does not want any narcotics we will give a dose of Toradol. Patient's pain is localized to her right side. She does not have any left pain she states she was had a kidney stone on the left side that was at about the same area unclear if this is persistent stone but is not her source of pain today. Appendix is not specifically noted but patient does not have any right lower quadrant pain on exam. She does have flank pain urine shows possible infection with blood, 1-5 white cells and RBCs so we will start oral antibiotic for possible pyelonephritis. Patient feels comfortable with this plan. We did discuss the appendix was not visualized, we also reviewed that there is a uterine remnant versus enlarged vaginal cuff and needs nonemergent ultrasound for follow up. We will have patient follow up with Urology for her stone that is present on the left. Started on Flomax, pain medication and oral antibiotics. Spoke with Dr. Saleh urology, agrees with plan we will see patient to the office to follow up. They will reach out Tuesday. Discharge Plan Departure Patient Disposition: Home Clinical Impression: Pyelonephritis of right kidney, Kidney stone on left side Instructions: DI for Kidney Infection Activity Restrictions/Additional Instructions: Please follow up a follow up with Urology for the ureteral stone on your left side. There was no changes on the right side, your appendix isn't visualized today but there are no secondary signs of appendicitis. Based on your urine I suspect you may have infection developing of your kidney on the right. It is also noted that you either have a small remnant of uterus left anterior vaginal cuff for an enlarged vaginal cuff, follow up with pelvic ultrasound with primary care has not outpatient. Take oral antibiotics until completed. Take Flomax once daily. Take acetaminophen up to a 1000 mg every 6 hours as needed, you can take ibuprofen up to 600 mg every 6 hours as needed. If inadequate for pain you can take tramadol 1 tablet every 6 hours as needed. This medication can make you sleepy do not drive, perform hazardous activities or make any major decisions while taking it. This medication will make you constipated please take a stool softener once to twice daily until stools are soft and regular. [facility] [place]. Please return for fevers, worsening or crease new abdominal back or flank pain, vomiting, difficulty with urination or other new or concerning changes. Prescriptions: New tamsulosin [Flomax] 0.4 mg capsule 0.8 mg PO DAILY 7 Days Qty: 14 0RF ciprofloxacin HCl 500 mg tablet 500 mg PO BID Qty: 20 0RF tramadol 50 mg tablet 50 mg PO Q6H PRN (Reason: pain) Qty: 10 0RF ondansetron 4 mg tablet,disintegrating 4 mg PO Q6H PRN (Reason: nausea and vomiting) Qty: 7 0RF No Action estradiol 0.0375 mg/24 hr patch semiweekly 1 patch transdermal 2XW Qty: 16 4RF Rx Instructions: apply 1 patch for 3 days alternating with 1 patch for 4 days each week for 3 wks per 4-wk cycle bupropion HCl 300 mg tablet extended release 24 hr 300 mg PO DAILY Qty: 90 0RF tirzepatide 2.5 mg/0.5 mL pen injector 2.5 mg SUBCUT QWEEK Qty: 2 0RF Rx Instructions: for 4 weeks varenicline tartrate [Chantix] 1 mg tablet 1 mg PO BID Qty: 56 1RF gabapentin 300 mg capsule 300 mg PO BEDTIME Qty: 90 2RF losartan 25 mg tablet 25 mg PO DAILY Qty: 90 1RF meloxicam 7.5 mg tablet 7.5 mg PO BID bupropion HCl 150 mg tablet extended release 24 hr 150 mg PO QAM MDD 450mg Qty: 90 0RF Rx Instructions: Take one 150 mg tab with one 300 mg tab for a total of 450 mg p.o. bupropion daily Referrals: Alma Romero PA-C [Primary Care Provider] - Bora Saleh MD [Physician] - Stand Alone Forms: Patient Portal/API/Survey
--- NOTE | 2024-06-16 12:04 | EKG_ITS ---
[address] [address] Test Date: 2024-06-16 Pat Name: Shireen Cerrato Department: Room: Gender: Female Lab Technologist: RAPHAEL : 1965 Requested By: Order Number: [id number] Reading MD: Jonas Bose Measurements Intervals [place] Rate: 63 P: 63 NM: 166 QRS: 18 QRSD: 88 T: 49 QT: 396 QTc: 405 Interpretive Statements Normal sinus rhythm Electronically Signed On 06-16-2024 13:59:30 PDT by Jonas Bose
--- NOTE | 2024-06-16 12:04 | DI.CT.S_ITS ---
PROCEDURE: CT KIDNEY URETER BLADDER (KUB) INDICATIONS: R flank/ant abd pain, mild tender flank, x 6 days TECHNIQUE: Axial sections were acquired from the lung bases to the pubic symphysis. Coronal and sagittal reformats were performed. For radiation dose reduction, the following was used: automated exposure control, adjustment of mA and/or kV according to patient size. COMPARISON: [facility], RF, CERVICAL MBB, 03/07/2023, 16:14. [facility], CT, CT KIDNEY URETER BLADDER (KUB), 06/20/2023, 12:28. FINDINGS: Image quality: Diagnostic. Lower Chest: No significant findings. URINARY: Right Kidney: No stones or hydronephrosis. Right Ureter: No hydroureter. Left Kidney: No stone. Mild hydronephrosis. Left Ureter: 5 mm proximal ureteral stone with average density of 650 Hounsfield units. Mild proximal hydroureter Bladder: Diffuse bladder wall thickening. ABDOMEN: Liver: Hepatic steatosis. Gallbladder: No radiopaque gallstones or wall thickening. Biliary ducts: No biliary dilation. Pancreas: No ductal dilation. Spleen: Size is within normal limits. Adrenal Glands: Stable nodular thickening of the left adrenal gland. Stomach and Bowel: Normal colonic caliber, without significant wall thickening. Normal appendix. Scattered colonic diverticula. Peritoneum: No abnormal intraperitoneal fluid. No free air. Ventral Wall: No hernia. Abdominal Nodes: No enlarged retroperitoneal or mesenteric lymph nodes. Vessels: Aorta and inferior vena cava are normal in size. PELVIS: Pelvic Organs: Or prominence of the vaginal cuff versus lower uterine segment. Pelvic Nodes: Unremarkable. Miscellaneous: No inguinal hernias are seen. Bones: Unremarkable. IMPRESSION: 1. Left proximal ureteral stone measuring 5 mm. 2. Thickened bladder wall may be exaggerated from underdistention, correlate with UA. 3. Uterine remnant versus enlarged vaginal cuff similar to comparison. Consider nonemergent ultrasound Dictated by: Bora Mcclendon M.D. on 06/16/2024 at 11:34 Approved by: Bora Mcclendon M.D. on 06/16/2024 at 11:44
[2024-06-16] MEDS: LIDOCAINE 2% (PF) 8 ML in SODIUM CHLORIDE 0.9% 50 ML 348 ML IV (12:33)
[2024-06-16 12:36] VITALS: BP 139/80; PULSE 59; O2SAT 99
[2024-06-16 12:37] VITALS: BP 139/80; PULSE 59; RESP 16; O2SAT 96
[2024-06-16 13:09] VITALS: BP 159/77; PULSE 59; RESP 16; O2SAT 97
[2024-06-16 13:10] VITALS: BP 159/77; PULSE 60; RESP 14; O2SAT 97
[2024-06-16] MEDS: CIPROFLOXACIN 250 MG TABLET 500 MG PO (13:55)
[2024-06-16] MEDS: KETOROLAC 30 MG/ML VIAL 15 MG IV (13:55)
[2024-06-16 14:04] VITALS: BP 150/85; PULSE 59; RESP 16; O2SAT 98
== END 2024-06-16 14:05 | disposition home or self-care (01) ==
PROVIDERS: Emergency Provider Emergency Medicine; PCP Physician Assistant
DX: N20.0 Calculus of kidney (principal); R31.9 Hematuria, unspecified
CPT/HCPCS: 36415; 74176; 80053; 81003; 81015; 83690; 85025; 93005; 96374; 99284; J1885

== ENCOUNTER → 2024-06-19 11:51 | Outpatient (CLI) | payer OTHER, SELFPAY ==
[2020-08-20 11:11] VITALS: BMI 33.9
--- NOTE | 2024-06-19 11:52 | DI.RAD.S_ITS ---
PROCEDURE: XR KUB INDICATIONS: Left ureteral calculus TECHNIQUE: One view of the abdomen acquired. COMPARISON: [facility] ([place]), CR, XR KUB, 06/14/2024, 12:57. FINDINGS: Surgical changes and devices: None. Bowel: Bowel gas pattern is normal. Retained colonic stool. Soft tissues: No suspicious abdominal calcifications. Visualized solid organ contours appear normal in size. Bones: No suspicious bony lesions. IMPRESSION: No acute abnormality. Retained colonic stool. Dictated by: Micky Chin M.D. on 06/20/2024 at 1:17 Approved by: Micky Chin M.D. on 06/20/2024 at 1:18
== END ==
PROVIDERS: PCP Physician Assistant; Referring Provider Urology; Visit Provider Urology
DX: N20.0 Calculus of kidney (principal)
CPT/HCPCS: 74018; 81002; 99214

== ENCOUNTER → 2024-07-23 13:53 | Outpatient (CLI) | payer OTHER, SELFPAY ==
[2024-06-29 13:24] VITALS: BMI 33.9
--- NOTE | 2024-07-23 13:54 | DI.CT.S_ITS ---
PROCEDURE: CT KIDNEY URETER BLADDER (KUB) INDICATIONS: 58 y/o F w/ a 5mm left proximal ureterolith eval for passage TECHNIQUE: Axial sections were acquired from the lung bases to the pubic symphysis. Coronal and sagittal reformats were performed. For radiation dose reduction, the following was used: automated exposure control, adjustment of mA and/or kV according to patient size. COMPARISON: [facility], CT, CT KIDNEY URETER BLADDER (KUB), 06/16/2024, 12:20. [facility], CT, CT KIDNEY URETER BLADDER (KUB), 06/20/2023, 12:28. FINDINGS: Image quality: Diagnostic. Lower Chest: Lung bases are clear. Small hiatal hernia. URINARY: Right Kidney: No stones or hydronephrosis. Right Ureter: No hydroureter. Left Kidney: Persistent mild left hydronephrosis and minimal proximal left hydroureter without significant perinephric stranding or perivesicular stranding. No renal stones identified. Left Ureter: Previously seen proximal left ureteral stone has transit into the distal left ureter a short distance proximal to the left ureterovesicular junction. This stone measures approximately 5-6 mm in size and measures approximately 590 Hounsfield units. Bladder: The urinary bladder remains mostly decompressed with circumferential wall thickening. ABDOMEN: Liver: No contour-deforming solid mass. Hepatic steatosis Gallbladder: No radiopaque gallstones or wall thickening. Biliary ducts: No biliary dilation. Pancreas: No ductal dilation. Spleen: Size is within normal limits. Adrenal Glands: No adrenal nodules. Stomach and Bowel: Normal colonic caliber, without significant wall thickening. Scattered colonic diverticula without acute inflammation. Normal appendix. No evidence for small bowel obstruction or associated inflammatory changes. Peritoneum: No abnormal intraperitoneal fluid. No free air. Ventral Wall: No hernia. Abdominal Nodes: No enlarged retroperitoneal or mesenteric lymph nodes. Vessels: Aorta and inferior vena cava are normal in size. PELVIS: Pelvic Organs: Stable appearance of the pelvic structures with either prominent vaginal cuff versus atrophic appearance of the uterus. Recommend correlation with prior surgical history. Pelvic Nodes: Unremarkable. Miscellaneous: No inguinal hernias are seen. Bones: Unremarkable. Visualized osseous structures appear intact without acute fracture or focal destructive lesion. No acute compression fractures of the imaged spine. IMPRESSION: Interval transit of previously described mildly obstructing proximal left ureteral stone to the distal left ureter a short distance proximal to the left ureterovesicular junction. This 5-6 mm distal ureteral stone measures approximately 590 Hounsfield units in density. Minimal left hydroureteronephrosis. Persistent circumferential wall thickening of the urinary bladder likely related to incomplete distension. However, cystitis may have a similar appearance. Recommend clinical and laboratory correlation. Colonic diverticulosis without acute diverticulitis. Normal appendix. Hepatic steatosis. Other chronic findings as above Dictated by: Rio Chua M.D. on 07/23/2024 at 20:15 Approved by: Rio Chua M.D. on 07/23/2024 at 20:23
== END ==
PROVIDERS: PCP Physician Assistant; Referring Provider Urology; Visit Provider Urology
DX: N20.1 Calculus of ureter (principal); K44.9 Diaphragmatic hernia without obstruction or gangrene; K76.0 Fatty (change of) liver, not elsewhere classified; K57.90 Diverticulosis of intestine, part unspecified, without perforation or abscess without bleeding; R39.9 Unspecified symptoms and signs involving the genitourinary system
CPT/HCPCS: 74176; 87086

== ENCOUNTER → 2024-07-23 15:29 | Outpatient (CLI) | payer OTHER, SELFPAY ==
[2024-06-29 13:24] VITALS: BMI 33.9
== END ==
LOC: LAB 15:31
PROVIDERS: PCP Physician Assistant; Visit Provider Urology
DX: R39.9 Unspecified symptoms and signs involving the genitourinary system (principal)
CPT/HCPCS: 87086

== ENCOUNTER → 2024-08-20 09:00 | Outpatient (CLI) | payer OTHER, SELFPAY ==
[2024-06-29 13:24] VITALS: BMI 33.9
--- NOTE | 2024-08-20 09:01 | DI.CT.S_ITS ---
PROCEDURE: CT PEL WO CON INDICATIONS: 59 y/o F w/ a 5mm left distal ureterolith, eval for passage TECHNIQUE: Noncontrast 3 mm axial sections acquired through the bony pelvis, with coronal and sagittal reformatting. COMPARISON: [facility], CT, CT KIDNEY URETER BLADDER (KUB), 07/23/2024, 14:36. FINDINGS: Image quality: Diagnostic Lower abdomen: No bowel obstruction in the lower abdomen. Colonic diverticula are seen. Bladder: Thick walled, under distended urinary bladder. No intraluminal calcified stones identified. No right distal ureter stone. Similar positioning of the left 6 mm distal ureter stone, proximal to the UVJ. Reproductive organs: Mildly prominent endometrium at 6 mm. Reproductive organs otherwise unremarkable on limited CT evaluation Rectum: Unremarkable Vessels and lymph nodes: No aneurysmal vessel in the field of view. No enlarged lymph nodes by size criteria Pelvic wall: Unremarkable Bones: No aggressive appearing osseous abnormality. There are degenerative changes. IMPRESSION: Similar 6 mm left distal ureter stone just proximal to the UVJ. No significant upstream ureter dilation. Under distended thick wall urinary bladder also again seen, correlate urinalysis and possible cystoscopy. Other findings above. Mildly prominent uterine endometrium at 6 mm, consider nonurgent pelvic ultrasound follow-up. Dictated by: Mihir Camacho M.D. on 08/20/2024 at 15:40 Approved by: Mihir Camacho M.D. on 08/20/2024 at 15:43
== END ==
PROVIDERS: PCP Physician Assistant; Referring Provider Urology; Visit Provider Urology
DX: N20.2 Calculus of kidney with calculus of ureter (principal); R93.41 Abnormal radiologic findings on diagnostic imaging of renal pelvis, ureter, or bladder; R31.9 Hematuria, unspecified
CPT/HCPCS: 72192; 87086; 99214

== ENCOUNTER → 2024-08-20 13:40 | Outpatient (CLI) | payer OTHER, SELFPAY ==
[2024-06-29 13:24] VITALS: BMI 33.9
== END ==
PROVIDERS: PCP Physician Assistant; Visit Provider Urology
DX: N20.2 Calculus of kidney with calculus of ureter (principal); R31.9 Hematuria, unspecified
CPT/HCPCS: 87086

== ENCOUNTER 2024-08-31 06:16 | Day surgery (SDC) | payer OTHER, SELFPAY ==
[2024-06-29 13:24] VITALS: BMI 33.9
[2024-08-29 10:31] VITALS: BMI 35.6
[2024-08-31] VITALS (7 sets, daily range): BP systolic 117–141; BP diastolic 57–96; PULSE 60–68; RESP 10–18; TEMP 36.3–36.6; O2SAT 90–98; BMI 35.6
--- NOTE | 2024-08-31 | DI.RAD.S_ITS ---
PROCEDURE: XR ABDOMEN 1V INDICATIONS: left stent placement TECHNIQUE: 2 intra-operative images acquired by the Urology service. COMPARISON: [facility], CR, XR ABDOMEN MIN 2V, 09/26/2019, 2:27. [facility], CT, CT KIDNEY URETER BLADDER (KUB), 07/23/2024, 14:36. FINDINGS: Intraoperative support for left double-J ureteral stent placement. Retrograde contrast opacifies a dilated left upper renal collecting system. Small amount of contrast noted in the decompression a bladder. IMPRESSION: Intraoperative fluoroscopic support for left ureteral stent placement. Please see separate procedure note for further details. Dictated by: Rio Chua M.D. on 08/31/2024 at 13:29 Approved by: Rio Chua M.D. on 08/31/2024 at 13:38
[2024-08-31] MEDS: LACTATED RINGERS 1,000 ML 21 ML IV (06:49)
--- NOTE | 2024-08-31 07:37 | PM.PREOP ---
Pre-operative Note COVID-19 COVID-19 status: Not tested Interval Note History & Physical reviewed/Exam performed by Physician: Yes Changes to H&P: No
[2024-08-31] MEDS: levoFLOXacin 500 MG/100 ML PIGGYBACK 100 MG IV (07:45)
--- NOTE | 2024-08-31 08:19 | SUR.OPER ---
Lithotomy on padded OR bed, head on pillow, arms secured on padded arm boards at side. Legs secured in padded yellow fins stirrups.
--- NOTE | 2024-08-31 08:43 | SUR.OPER ---
[facility] LASER - ENERGY EMITTED 0.38 KJ - LASING TIME: 00.30 SETINGS 0.3-1 J 12-40 HZ 12 W
--- NOTE | 2024-08-31 08:51 | PM.OP.1 ---
Operative Date/Time/Diagnoses Date of procedure: 08/31/24 Time of procedure: 08:00 Pre-op diagnosis: Left distal ureterolith Post-op diagnosis: same Procedure & Clinicians Procedure: Cystoscopy Left retrograde ureteropyelogram Left ureteroscopy, laser lithotripsy Left ureteral stent placement Intraoperative interpretation of fluoroscopic images, total time < 1 hour Same procedure(s) as scheduled: Yes Indications: 59 y/o F w/ h/o nephrolithiasis who was diagnosed with a 5mm left proximal ureterolith in early June of 2024 and her repeat imaging today was notable for persistence of the aforementioned stone within her left distal ureter. Discussed that there has been no interval movement of her stone in the last 4 weeks. Discussed treatment options to include continued medical expulsion therapy (not recommended) vs cystoscopy, ureteroscopy, laser lithotripsy with ureteral stent placement. Surgeon: Stephen Melendez Click Yes if Unassisted: Yes Anesthesia Type: General Operative Notes Findings: Moderate sized left distal ureterolith Closure Type: not applicable Specimen(s): other (left ureteral stone) Applied: none Estimated Blood Loss (mL): 2 Blood products transfused: none Procedure in detail: Patient was identified in the preoperative holding area and consent confirmed. She was then brought to the operating room where general anesthesia was induced.? She was placed in the low lithotomy position. She was then prepped and draped in the usual sterile fashion. A surgical timeout was conducted and all were in agreement. Access to the bladder was obtained via a 30 degree cystoscope.? Complete cystoscopy was then performed and no concerning bladder masses or lesions were appreciated.? Bilateral ureteral orifices were easily identified and noted to be orthotopic in nature.? The left ureteral orifice was then cannulated using a 0.035 sensor tip ureteral guidewire and a 5Fr ureteral catheter was advanced over the guidewire and into the distal left ureter.? The guidewire was then removed and a retrograde ureteropyelogram was performed which noted a moderate sized filling defect in the distal left ureter, consistent with CT findings of a stone in that area.? The ureteral guidewire was then readvanced through the ureteral catheter and into the left renal pelvis.? The ureteral catheter was then removed and a semirigid ureteroscope was easily advanced into her left ureter alongside the guidewire and to the level of the stone.? A 200 micron laser fiber was then utilized to perform laser lithotripsy.? All stone fragments >1mm in size were removed via the stone basket and sent for chemical analysis.? The ureter was then directly visualized upon removal of the ureteroscope and noted to be stone free.? A 6Fr multi-length JJ ureteral stent with string was then advanced over the ureteral guidewire.? Upon removal of the guidewire, a good curl was noted in the left renal pelvis and the bladder using fluoroscopy.? The bladder was then drained.? Anesthesia was reversed, she was extubated in the OR and transferred to the PACU in stable condition for recovery. Complications: none Post-operative Condition: stable Disposition: PACU Plan for aftercare: Discharge home from PACU. She will remove her left ureteral stent on the morning of 05 September 2024.
== END 2024-08-31 09:45 | disposition home or self-care (01) ==
PROVIDERS: PCP Physician Assistant; Referring Provider Urology; Visit Provider Urology
PROC: 0TF78ZZ Fragmentation in Left Ureter, Via Natural or Artificial Opening Endoscopic (ICD-10-PCS; CPT 52353; principal; 2024-08-31 07:45)
DX: N20.1 Calculus of ureter (principal); I10 Essential (primary) hypertension; G47.33 Obstructive sleep apnea (adult) (pediatric)
CPT/HCPCS: 52356; 74018; 76000; 82365; C2617; J0330; J1100; J1956; J2405; J2704; J3010; Q9967

== ENCOUNTER 2024-10-24 14:11 | Emergency (ER) | payer OTHER, SELFPAY ==
[2024-06-29 13:24] VITALS: BMI 33.9
[2024-10-24 15:29] VITALS: BP 150/92; PULSE 65; RESP 17; TEMP 36.6; O2SAT 97; BMI 32.5
--- NOTE | 2024-10-24 15:41 | DI.CT.S_ITS ---
PROCEDURE: CT ABDOMEN PELVIS W CON INDICATIONS: RUQ/flank pain TECHNIQUE: After the administration of intravenous contrast, axial sections acquired from the lung bases to the pubic symphysis. Coronal and sagittal reformats were performed. For radiation dose reduction, the following was used: automated exposure control, adjustment of mA and/or kV according to patient size. COMPARISON: [facility], CT, CT ABDOMEN PELVIS W CON, 09/28/2022, 21:10. FINDINGS: Image quality: Diagnostic. Lower Chest: No significant findings. ABDOMEN: Liver: No solid mass. Gallbladder: No radiopaque gallstones or wall thickening. Biliary ducts: No biliary dilation. Pancreas: No ductal dilation. Spleen: Size is within normal limits. Adrenal Glands: No adrenal nodules. Kidneys and Ureters: No hydronephrosis. No solid mass. No complex renal cystic lesion which requires follow up. Stomach and Bowel: Normal colonic caliber, without significant wall thickening. Normal appendix. Sigmoid diverticulosis without CT evidence of acute diverticulitis. Large transverse colonic and right colonic fecal load. Peritoneum: No abnormal intraperitoneal fluid. No free air. Ventral Wall: No significant ventral hernia. Abdominal Nodes: No retroperitoneal or mesenteric adenopathy by size criteria. Vessels: Aorta and inferior vena cava are normal in size. PELVIS: Pelvic Organs: Uterus is surgically absent. No adnexal masses.. Bladder: No bladder wall thickening, accounting for underdistention. Pelvic Nodes: No enlarged lymph nodes. Miscellaneous: No inguinal hernias are seen. Bones: No aggressive osseous abnormality. IMPRESSION: 1. Large transverse colonic and right colonic fecal load. 2. No acute abdominal process identified. 3. Remote hysterectomy. Dictated by: Darius Hawley M.D. on 10/24/2024 at 16:43 Approved by: Darius Hawley M.D. on 10/24/2024 at 16:48
--- NOTE | 2024-10-24 15:47 | EKG_ITS ---
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
[2024-10-24 15:49] LABS: Add Manual Diff / Slide Review NO; Hematocrit 41.7 % (36-46); Hemoglobin 14.0 g/dL (12.0-16.0); Lymphocytes Absolute Auto 2200 /uL (1100-4500); Mean Corpuscular HGB Conc 33.5 % (30-36); Mean Corpuscular Hemoglobin 29.0 PG (26-34); Mean Corpuscular Volume 86.3 fL (80-100); Platelet Count 167 X10^3/uL (150-400)
[2024-10-24 16:11] LABS: Alanine Aminotransferase 41 IU/L (<35); Albumin 4.7 g/dL (3.5-5.0); Albumin Globulin Ratio 1.7 (1.0-2.8); Alkaline Phosphatase 50 U/L (38-126); Blood Urea Nitrogen 10 mg/dL (7-17); Calcium 10.4 mg/dL (8.4-10.2); Carbon Dioxide 28 mmol/L (22-32); Chloride 104 mmol/L (98-107); Estimated Glomerular Filt Rate > 60 mL/min (>60); Globulin 2.8 g/dL (1.7-4.1); Glucose 88 mg/dL (70-99); HEMOLYSIS < 15 (0-50); Lipase 237 U/L (23-300); Potassium 3.7 mmol/L (3.4-5.1); Sodium 141 mmol/L (137-145); Total Protein 7.5 g/dL (6.3-8.2)
== END 2024-10-24 19:12 | disposition left against medical advice (07) ==
PROVIDERS: Emergency Medicine; Emergency Provider Emergency Medicine; PCP Physician Assistant
DX: R10.11 Right upper quadrant pain (principal); M54.50 Low back pain, unspecified
CPT/HCPCS: 36415; 74177; 80053; 81003; 83690; 85025; 93005; 99283; Q9967

== ENCOUNTER → 2024-11-09 07:53 | Outpatient (CLI) | payer OTHER, SELFPAY ==
[2024-06-29 13:24] VITALS: BMI 33.9
--- NOTE | 2024-11-09 07:55 | DI.MG.S_ITS ---
MM screening mammo BI: 11/09/2024. BI-RADS: 1 CLINICAL: 59-year old female for bilateral screening mammogram. Tyrer-Cuzick lifetime risk of 9.2%. No personal or first-degree family history of breast cancer. Current reported family history of breast cancer: maternal grandmother. PRIOR EXAMS 05/05/2023, 01/27/2022, 02/02/2021, 01/02/2021. MAMMOGRAPHY TECHNIQUE: 2D and 3D (tomosynthesis) digital mammographic views obtained, with additional images as needed for full coverage. Current study was also evaluated with a Computer Aided Detection (CAD) system. DENSITY B. There are scattered areas of fibroglandular density. MAMMOGRAPHY FINDINGS Bilateral: No suspicious mass, asymmetry, microcalcification, or other abnormality seen. IMPRESSION: * No evidence of malignancy. RECOMMENDATIONS Bilateral * Annual screening mammography. OVERALL ASSESSMENT CATEGORY BI-RADS-1: Negative. The [employer] recommends annual screening mammography beginning at age 40 for women with average risk of breast cancer. ELECTRONICALLY SIGNED: Dilia Nails M.D. on 11/10/2024 at 03:03:35 PM PT Interpreting Station ID: [id number]
== END ==
LOC: MAMMO 07:54
PROVIDERS: PCP Physician Assistant; Referring Provider Physician Assistant; Visit Provider Physician Assistant
DX: Z12.31 Encounter for screening mammogram for malignant neoplasm of breast (principal); Z80.3 Family history of malignant neoplasm of breast
CPT/HCPCS: 77063; 77067